=== PATIENT | female | born 1960 | race Caucasian/White ===

== ENCOUNTER 2023-04-03 05:50 | Inpatient (IN) | payer MEDICARE ==
[2023-04-03 06:33] LABS: #Basophils 0.1 10x3/uL (0.0-0.2); #Eosinphils 0.2 10x3/uL (0.0-0.5); #Monocytes 0.6 10x3/uL (0.0-1.1); #Neutrophils 4.5 10x3/uL (1.5-8.4); %Basophils 0.8 % (0.0-2.0); %Eosinophils 3.7 % (0.0-6.0); %Lymphocytes 11.5 % (18.0-47.0); %Monocytes 10.2 % (0.0-10.0); %Neutrophils 73.2 % (40.0-75.0); Hemoglobin 9.8 g/dL (12.0-15.5); Mean Corpuscular HGB CONC 32.9 g/dL (32.0-36.0); Mean Corpuscular Hemoglobin 31.9 pg (27.0-33.0); Mean Corpuscular Volume 97.1 fl (81.6-98.3); Mean Platelet Volume 8.6 fl (7.4-10.4); Platelet Count 130 10x3/uL (150-450); RBC Distribution Width 20.7 % (11.5-14.5); Red Blood Cell (RBC) Count 3.07 10x6/uL (3.90-5.03); White Blood Cell (WBC) Count 6.2 10x3/uL (3.5-10.5)
[2023-04-03 06:56] LABS: ALT (SGPT) 27 U/L (8-55); AST (SGOT) 41 U/L (5-34); Albumin 2.3 g/dL (3.4-4.8); Alkaline Phosphatase 121 U/L (40-110); Anion Gap 15 mmol/L (10-20); BUN (Urea Nitrogen) 10 mg/dL (9.8-20.1); Calc. Creatinine Clearance 0 mL/min (70-130); Calcium 8.7 mg/dL (7.8-10.44); Carbon Dioxide 26 mmol/L (23-31); Chloride 104 mmol/L (98-107); Estimated GFR 76; Globulin 2.9 g/dL (2.4-3.5); Glucose 107 mg/dL (80-115); Magnesium 1.9 mg/dL (1.6-2.6); Potassium 2.8 mmol/L (3.5-5.1); Protein, Total 5.2 g/dL (5.8-8.1); Sodium 142 mmol/L (136-145)
[2023-04-03 07:11] LABS: Bilirubin Neg (Negative); Blood, Urine Negative (Negative); Clarity Clear (Clear); Glucose, Urine (Dipstick) Normal (Negative); Ketone, Urine Negative (Negative); Leukocyte 25 (Negative); Nitrite Negative (Negative); Protein, Urine (Dipstick) 15 mg/dl (Neg-Trace); Urobilinogen Normal mg/dL (Less than 2)
[2023-04-03 07:24] LABS: Bacteria/HPF 2+ HPF (None Seen); CAUTI Indications for Culture Alt mental st,lethar; RBC/HPF None Seen HPF (0-3); Squamous Epithelial 0-3 HPF (0-3)
[2023-04-03 07:25] LABS: Urine Culture Reflex No No
[2023-04-03] MEDS ORDERED: Magnesium 2 GM/50 ML BAG (IN WATER) ONE (07:53)
[2023-04-03] MEDS ORDERED: Cefepime 2 GM VIAL ONE (07:53)
[2023-04-03] MEDS ORDERED: Potassium Chloride 20 MEQ/100 ML PREMIX BAG ONE (07:53)
[2023-04-03] MEDS ORDERED: Acetaminophen 325 MG TAB PO PRN (09:17)
[2023-04-03] MEDS ORDERED: Ondansetron PF 4 MG/2 ML Vial IVP PRN (09:17)
[2023-04-03] MEDS ORDERED: Calcium Carbonate 500 MG ChewTAB PO PRN (09:17)
[2023-04-03] MEDS ORDERED: Senokot S 8.6-50 MG TAB PO PRN (09:17)
[2023-04-03] MEDS ORDERED: Sodium Chloride 0.9% 1,000 ML IV SCH (09:30)
[2023-04-03] MEDS ORDERED: Vancomycin 1 GM VIAL ONE (10:31)
[2023-04-03 11:22] LABS: Lactic Acid 3.9 mmol/L (0.5-2.2)
[2023-04-03 15:18] VITALS: BMI 21.9
[2023-04-03] MEDS ORDERED: Sodium Chloride 0.9% 500 ML IV SCH (15:30)
[2023-04-03] MEDS: Sodium Chloride 0.9% 1,000 ML IV SCH (16:00)
[2023-04-03] MEDS: Albumin 25% 25 GM/100 ML BOT IVPB SCH (17:15)
[2023-04-03 18:04] LABS: Magnesium 2.4 mg/dL (1.6-2.6); Potassium 3.5 mmol/L (3.5-5.1)
[2023-04-03] MEDS ORDERED: Potassium Chloride 20 MEQ TAB PO SCH (18:30)
[2023-04-03 18:36] LABS: Lactic Acid 2.4 mmol/L (0.5-2.2)
[2023-04-03] MEDS ORDERED: Non-Formulary Medication 1 EACH (Apremilast [Otezla] 30 MG Tablet) PO SCH (21:00)
[2023-04-04] MEDS: Albumin 25% 25 GM/100 ML BOT IVPB SCH ×3 (00:30→12:45)
[2023-04-04 03:51] LABS: #Eosinphils 0.2 10x3/uL (0.0-0.5); #Monocytes 0.4 10x3/uL (0.0-1.1); #Neutrophils 2.7 10x3/uL (1.5-8.4); %Basophils 0.5 % (0.0-2.0); %Eosinophils 4.9 % (0.0-6.0); %Lymphocytes 13.8 % (18.0-47.0); %Monocytes 9.1 % (0.0-10.0); %Neutrophils 71.4 % (40.0-75.0); Mean Corpuscular HGB CONC 32.8 g/dL (32.0-36.0); Mean Corpuscular Volume 97.6 fl (81.6-98.3); Mean Platelet Volume 8.8 fl (7.4-10.4); Platelet Count 123 10x3/uL (150-450); RBC Distribution Width 20.1 % (11.5-14.5); White Blood Cell (WBC) Count 3.7 10x3/uL (3.5-10.5)
[2023-04-04 04:03] LABS: ALT (SGPT) 22 U/L (8-55); AST (SGOT) 28 U/L (5-34); Albumin 2.8 g/dL (3.4-4.8); Alkaline Phosphatase 100 U/L (40-110); Anion Gap 12 mmol/L (10-20); BUN (Urea Nitrogen) 11 mg/dL (9.8-20.1); Bilirubin, Total 2.2 mg/dL (0.2-1.2); Calc. Creatinine Clearance 67 mL/min (70-130); Calcium 9.1 mg/dL (7.8-10.44); Carbon Dioxide 27 mmol/L (23-31); Chloride 108 mmol/L (98-107); Estimated GFR 83; Globulin 2.2 g/dL (2.4-3.5); Glucose 73 mg/dL (80-115); Sodium 143 mmol/L (136-145)
[2023-04-04 04:37] LABS: Platelet Adequacy Comment Appears Decreased; RBC Morph Comment Within Normal Limits
[2023-04-04] MEDS: Sodium Chloride 0.9% 1,000 ML IV SCH (07:15)
[2023-04-04 08:27] LABS: Lactic Acid 1.2 mmol/L (0.5-2.2)
[2023-04-04] MEDS ORDERED: OCTREOTIDE ACETATE SQ SCH (09:00)
[2023-04-04] MEDS ORDERED: [UNRECOGNIZED DRUG - OTHER] SQ SCH (09:00)
[2023-04-04] MEDS: Potassium Chloride 20 MEQ TAB PO SCH (10:23)
[2023-04-04] MEDS: Clopidogrel Bisulfate 75 MG TAB PO SCH (10:23)
[2023-04-04] MEDS ORDERED: Vancomycin HCl 1 GM in Sodium Chloride 0.9% 250 ML 250 ML IVPB SCH (14:00)
[2023-04-04] MEDS: QUEtiapine 25 MG TAB PO SCH ×2 (14:47→15:23)
[2023-04-04] MEDS ORDERED: Iopamidol 370 76% 100 ML VIAL ONE (14:55)
[2023-04-04] MEDS ORDERED: diphenhydrAMINE 50 MG/ML VIAL IVP SCH (15:16)
[2023-04-04] MEDS ORDERED: OLANZapine 10 MG VIAL IM SCH (15:45)
[2023-04-04] MEDS ORDERED: cefTRIAXone\\ROCEPHIN 1 GM in Sodium Chloride 0.9% 100 ML IVPB SCH ×2 (17:00→20:00)
[2023-04-05] MEDS: Vancomycin HCl 750 MG in Sodium Chloride 0.9% 250 ML 250 ML IVPB SCH ×2 (02:38→14:41)
[2023-04-05] MEDS ORDERED: Furosemide 20 MG/2 ML VIAL SLOW IVP SCH ×2 (09:00→14:00)
[2023-04-05] MEDS: Clopidogrel Bisulfate 75 MG TAB PO SCH (11:00)
[2023-04-05] MEDS: Potassium Chloride 20 MEQ TAB PO SCH (11:00)
[2023-04-05] MEDS: Albumin 25% 25 GM/100 ML BOT IVPB SCH (11:10)
[2023-04-05 12:54] LABS: Vancomycin, Trough 13.9 ug/mL
[2023-04-05 14:25] LABS: #Eosinphils 0.2 10x3/uL (0.0-0.5); #Monocytes 0.5 10x3/uL (0.0-1.1); #Neutrophils 3.6 10x3/uL (1.5-8.4); %Basophils 0.4 % (0.0-2.0); %Eosinophils 3.6 % (0.0-6.0); %Lymphocytes 7.4 % (18.0-47.0); %Monocytes 11.4 % (0.0-10.0); %Neutrophils 76.8 % (40.0-75.0); Mean Corpuscular HGB CONC 31.1 g/dL (32.0-36.0); Mean Corpuscular Hemoglobin 31.9 pg (27.0-33.0); Mean Corpuscular Volume 102.4 fl (81.6-98.3); Platelet Count 95 10x3/uL (150-450); RBC Distribution Width 20.5 % (11.5-14.5); Red Blood Cell (RBC) Count 2.51 10x6/uL (3.90-5.03); White Blood Cell (WBC) Count 4.7 10x3/uL (3.5-10.5)
[2023-04-05 14:35] LABS: ALT (SGPT) 19 U/L (8-55); AST (SGOT) 26 U/L (5-34); Albumin 3.3 g/dL (3.4-4.8); Alkaline Phosphatase 85 U/L (40-110); Anion Gap 12 mmol/L (10-20); BUN (Urea Nitrogen) 9 mg/dL (9.8-20.1); Bilirubin, Total 2.2 mg/dL (0.2-1.2); Calc. Creatinine Clearance 65 mL/min (70-130); Calcium 9.7 mg/dL (7.8-10.44); Carbon Dioxide 24 mmol/L (23-31); Chloride 110 mmol/L (98-107); Estimated GFR 81; Globulin 2.1 g/dL (2.4-3.5); Glucose 90 mg/dL (80-115); Protein, Total 5.4 g/dL (5.8-8.1); Sodium 142 mmol/L (136-145)
[2023-04-05] MEDS ORDERED: Meropenem 1 GM in Sodium Chloride 0.9% 100 ML IVPB SCH ×2 (15:15→23:00)
[2023-04-05 16:51] LABS: Actual Bicarbonate (HCO3v) 25.5 mEq/L (22-28); Calcium, Ionized (venous) 1.26 mmol/L (1.16-1.32); Chloride (VBG) 108 mmol/L (98-106); Hematocrit-VBG 26 % (36.0-47.0); Hemoglobin (Hb) 8.7 g/dL (11.7-16.1); Potassium (VBG) 3.76 mmol/L (3.70-5.30); Puncture Site Other Site; RapidComm Collect By LAB; Sodium 139.6 mmol/L (133-146); pH (venous) 7.424 (7.32-7.43)
[2023-04-05] MEDS: Meropenem 1 GM in Sodium Chloride 0.9% 100 ML IVPB SCH (21:53)
[2023-04-06] MEDS: Vancomycin HCl 750 MG in Sodium Chloride 0.9% 250 ML 250 ML IVPB SCH ×2 (01:29→13:27)
[2023-04-06 05:17] LABS: #Eosinphils 0.3 10x3/uL (0.0-0.5); #Monocytes 0.6 10x3/uL (0.0-1.1); #Neutrophils 3.7 10x3/uL (1.5-8.4); %Basophils 0.6 % (0.0-2.0); %Eosinophils 4.9 % (0.0-6.0); %Lymphocytes 9.7 % (18.0-47.0); %Neutrophils 73.4 % (40.0-75.0); Hemoglobin 7.9 g/dL (12.0-15.5); Mean Corpuscular HGB CONC 31.5 g/dL (32.0-36.0); Mean Corpuscular Hemoglobin 31.3 pg (27.0-33.0); Mean Corpuscular Volume 99.6 fl (81.6-98.3); Mean Platelet Volume 9.6 fl (7.4-10.4); Platelet Count 99 10x3/uL (150-450); RBC Distribution Width 20.1 % (11.5-14.5); Red Blood Cell (RBC) Count 2.52 10x6/uL (3.90-5.03); White Blood Cell (WBC) Count 5.1 10x3/uL (3.5-10.5)
[2023-04-06 05:23] LABS: Phosphorus 2.5 mg/dL (2.3-4.7)
[2023-04-06 05:25] LABS: ALT (SGPT) 18 U/L (8-55); AST (SGOT) 22 U/L (5-34); Alkaline Phosphatase 82 U/L (40-110); Anion Gap 10 mmol/L (10-20); BUN (Urea Nitrogen) 8 mg/dL (9.8-20.1); Bilirubin, Total 2.7 mg/dL (0.2-1.2); Calc. Creatinine Clearance 72 mL/min (70-130); Calcium 9.4 mg/dL (7.8-10.44); Carbon Dioxide 25 mmol/L (23-31); Chloride 109 mmol/L (98-107); Estimated GFR 91; Glucose 79 mg/dL (80-115); Magnesium 1.8 mg/dL (1.6-2.6); Potassium 3.6 mmol/L (3.5-5.1); Sodium 140 mmol/L (136-145)
[2023-04-06] MEDS: Meropenem 1 GM in Sodium Chloride 0.9% 100 ML IVPB SCH ×3 (05:31→21:18)
[2023-04-06] MEDS: Furosemide 40 MG/4 ML VIAL SLOW IVP SCH (08:09)
[2023-04-06] MEDS: Clopidogrel Bisulfate 75 MG TAB PO SCH (08:10)
[2023-04-06] MEDS: Spironolactone 25 MG TAB PO SCH (08:10)
[2023-04-06] MEDS: Potassium Chloride 20 MEQ TAB PO SCH (08:10)
[2023-04-06] MEDS ORDERED: Electrolyte Replacement Protocol 1 EACH FS PRN (09:04)
[2023-04-06] MEDS ORDERED: Magnesium 2 GM/50 ML(in water) 2 GM in Premix Bag 1 BAG IVPB SCH (12:00)
[2023-04-06] MEDS: Albumin 25% 25 GM/100 ML BOT IVPB SCH (14:24)
[2023-04-07] MEDS: Vancomycin HCl 750 MG in Sodium Chloride 0.9% 250 ML 250 ML IVPB SCH (01:14)
[2023-04-07 04:00] LABS: #Eosinphils 0.4 10x3/uL (0.0-0.5); #Monocytes 0.7 10x3/uL (0.0-1.1); #Neutrophils 3.8 10x3/uL (1.5-8.4); %Basophils 0.5 % (0.0-2.0); %Eosinophils 6.3 % (0.0-6.0); %Lymphocytes 12.9 % (18.0-47.0); %Neutrophils 67.9 % (40.0-75.0); Hemoglobin 8.7 g/dL (12.0-15.5); Mean Corpuscular HGB CONC 32.5 g/dL (32.0-36.0); Mean Corpuscular Hemoglobin 32.2 pg (27.0-33.0); Mean Corpuscular Volume 99.3 fl (81.6-98.3); Mean Platelet Volume 9.7 fl (7.4-10.4); Platelet Count 120 10x3/uL (150-450); RBC Distribution Width 19.9 % (11.5-14.5); White Blood Cell (WBC) Count 5.3 10x3/uL (3.5-10.5)
[2023-04-07 04:10] LABS: ALT (SGPT) 17 U/L (8-55); AST (SGOT) 29 U/L (5-34); Albumin 2.8 g/dL (3.4-4.8); Alkaline Phosphatase 82 U/L (40-110); Anion Gap 9 mmol/L (10-20); BUN (Urea Nitrogen) 6 mg/dL (9.8-20.1); Bilirubin, Total 1.9 mg/dL (0.2-1.2); Calc. Creatinine Clearance 72 mL/min (70-130); Calcium 8.9 mg/dL (7.8-10.44); Carbon Dioxide 24 mmol/L (23-31); Chloride 110 mmol/L (98-107); Estimated GFR 91; Globulin 2.1 g/dL (2.4-3.5); Glucose 102 mg/dL (80-115); Magnesium 1.8 mg/dL (1.6-2.6); Potassium 3.4 mmol/L (3.5-5.1); Protein, Total 4.9 g/dL (5.8-8.1); Sodium 140 mmol/L (136-145)
[2023-04-07] MEDS: Meropenem 1 GM in Sodium Chloride 0.9% 100 ML IVPB SCH ×2 (05:37→13:20)
[2023-04-07] MEDS ORDERED: Potassium Chloride 20 MEQ TAB PO SCH (06:00)
[2023-04-07] MEDS ORDERED: Magnesium 2 GM/50 ML(in water) 2 GM in Premix Bag 1 BAG IVPB SCH (06:00)
[2023-04-07] MEDS: Furosemide 40 MG/4 ML VIAL SLOW IVP SCH (08:27)
[2023-04-07] MEDS: Spironolactone 25 MG TAB PO SCH (08:27)
[2023-04-07] MEDS: Clopidogrel Bisulfate 75 MG TAB PO SCH (08:27)
[2023-04-07] MEDS: Potassium Chloride 20 MEQ TAB PO SCH (08:29)
[2023-04-07 15:54] VITALS: BP 123/68; TEMP 99.2
== END 2023-04-07 15:57 | disposition home or self-care (01) | DRG 871 ==
LOC: CSHERS 05:50 → SUATTDRO 05:50 → CSHTELE 13:52 → CSHIMCU 04-05 18:02
PROVIDERS: ADMIT Internal Medicine; ATTEND Internal Medicine
PROC: 3E03329 Introduction of Other Anti-infective into Peripheral Vein, Percutaneous Approach (ICD-10-PCS; principal; 2023-04-03)
PROC: 30233J1 Transfusion of Nonautologous Serum Albumin into Peripheral Vein, Percutaneous Approach (ICD-10-PCS; 2023-04-05)
PROC: 5A09357 Assistance with Respiratory Ventilation, Less than 24 Consecutive Hours, Continuous Positive Airway Pressure (ICD-10-PCS; 2023-04-06)
DX: A41.9 Sepsis, unspecified organism (principal); G93.41 Metabolic encephalopathy; J18.9 Pneumonia, unspecified organism; I50.22 Chronic systolic (congestive) heart failure; K76.82 Hepatic encephalopathy; I25.10 Atherosclerotic heart disease of native coronary artery without angina pectoris; L40.9 Psoriasis, unspecified; I11.0 Hypertensive heart disease with heart failure; E78.00 Pure hypercholesterolemia, unspecified; E87.6 Hypokalemia; K74.69 Other cirrhosis of liver; E78.5 Hyperlipidemia, unspecified; D64.9 Anemia, unspecified; R41.0 Disorientation, unspecified; Z88.0 Allergy status to penicillin; Z88.5 Allergy status to narcotic agent; Z79.899 Other long term (current) drug therapy; Z85.3 Personal history of malignant neoplasm of breast; Z98.890 Other specified postprocedural states; Z87.891 Personal history of nicotine dependence; I25.2 Old myocardial infarction
CPT/HCPCS: 36415; 70450; 71045; 74177; 80053; 80202; 82140; 82533; 82565; 82805; 83605; 83735; 83880; 84100; 84145; 84484; 84520; 85025; 87040; 87077; 87086; 87186; 94760; 94762; 96374; 96375; J0692; J0696; J1200; J1940; J1956; J2185; J3370; J3475; J3480; J3490; J7030; J7050; P9047; Q9967

== ENCOUNTER 2023-05-15 15:22 | Observation (INO) | payer MEDICARE ==
[2023-05-15 16:13] LABS: #Eosinphils 0.3 10x3/uL (0.0-0.5); #Monocytes 0.6 10x3/uL (0.0-1.1); #Neutrophils 3.7 10x3/uL (1.5-8.4); %Basophils 0.6 % (0.0-2.0); %Eosinophils 5.1 % (0.0-6.0); %Lymphocytes 14.8 % (18.0-47.0); %Monocytes 10.7 % (0.0-10.0); %Neutrophils 68.4 % (40.0-75.0); Hemoglobin 10.9 g/dL (12.0-15.5); Mean Corpuscular HGB CONC 33.4 g/dL (32.0-36.0); Mean Corpuscular Hemoglobin 34.5 pg (27.0-33.0); Mean Corpuscular Volume 103.2 fl (81.6-98.3); Mean Platelet Volume 8.9 fl (7.4-10.4); Platelet Count 122 10x3/uL (150-450); RBC Distribution Width 18.6 % (11.5-14.5); Red Blood Cell (RBC) Count 3.16 10x6/uL (3.90-5.03); White Blood Cell (WBC) Count 5.3 10x3/uL (3.5-10.5)
[2023-05-15 16:27] LABS: ALT (SGPT) 34 U/L (8-55); AST (SGOT) 45 U/L (5-34); Albumin 3.1 g/dL (3.4-4.8); Alkaline Phosphatase 222 U/L (40-110); Anion Gap 15 mmol/L (10-20); BUN (Urea Nitrogen) 11 mg/dL (9.8-20.1); Bilirubin, Total 2.8 mg/dL (0.2-1.2); Calc. Creatinine Clearance 0 mL/min (70-130); Calcium 9.6 mg/dL (7.8-10.44); Carbon Dioxide 28 mmol/L (23-31); Chloride 100 mmol/L (98-107); Estimated GFR 58; Globulin 3.3 g/dL (2.4-3.5); Glucose 105 mg/dL (80-115); Potassium 3.6 mmol/L (3.5-5.1); Protein, Total 6.4 g/dL (5.8-8.1); Sodium 139 mmol/L (136-145)
[2023-05-15] MEDS ORDERED: Magnesium 2 GM/50 ML BAG (IN WATER) ONE (16:41)
[2023-05-15 18:28] LABS: Magnesium 2.1 mg/dL (1.6-2.6)
[2023-05-16 04:56] LABS: Anion Gap 13 mmol/L (10-20); BUN (Urea Nitrogen) 10 mg/dL (9.8-20.1); Calc. Creatinine Clearance 60 mL/min (70-130); Carbon Dioxide 27 mmol/L (23-31); Chloride 103 mmol/L (98-107); Potassium 3.1 mmol/L (3.5-5.1); Sodium 140 mmol/L (136-145)
[2023-05-16 04:57] LABS: Albumin 2.3 g/dL (3.4-4.8); Bilirubin, Total 2.2 mg/dL (0.2-1.2); Calcium 8.5 mg/dL (7.8-10.44); Estimated GFR 76; Globulin 2.6 g/dL (2.4-3.5); Glucose 101 mg/dL (80-115); Protein, Total 4.9 g/dL (5.8-8.1)
[2023-05-16 04:58] LABS: ALT (SGPT) 27 U/L (8-55); AST (SGOT) 32 U/L (5-34); Alkaline Phosphatase 166 U/L (40-110); Magnesium 2.2 mg/dL (1.6-2.6)
[2023-05-16 05:00] LABS: #Eosinphils 0.3 10x3/uL (0.0-0.5); #Monocytes 0.4 10x3/uL (0.0-1.1); #Neutrophils 1.9 10x3/uL (1.5-8.4); %Basophils 0.9 % (0.0-2.0); %Eosinophils 8.1 % (0.0-6.0); %Lymphocytes 21.3 % (18.0-47.0); %Monocytes 12.6 % (0.0-10.0); %Neutrophils 56.5 % (40.0-75.0)
[2023-05-16 05:07] LABS: Hemoglobin 8.6 g/dL (12.0-15.5); Mean Corpuscular HGB CONC 32.7 g/dL (32.0-36.0); Mean Corpuscular Hemoglobin 33.7 pg (27.0-33.0); Mean Corpuscular Volume 103.1 fl (81.6-98.3); Mean Platelet Volume 8.9 fl (7.4-10.4); Platelet Count 114 10x3/uL (150-450); RBC Distribution Width 18.5 % (11.5-14.5); Red Blood Cell (RBC) Count 2.55 10x6/uL (3.90-5.03); White Blood Cell (WBC) Count 3.4 10x3/uL (3.5-10.5)
[2023-05-16 05:19] LABS: Anisocytosis SLIGHT = 6-15 cells (100X) (0-5/hpf); Microcytosis SLIGHT = 6-15 cells (100X) (0-5/hpf); Ovalocytes SLIGHT = 2-5 cells (100X) (0-1/hpf)
[2023-05-16 05:20] LABS: Platelet Adequacy Comment Appears Decreased
[2023-05-16] MEDS ORDERED: Electrolyte Replacement Protocol FS PRN (06:45)
[2023-05-16] MEDS ORDERED: Potassium Chloride 20 MEQ TAB PO SCH (07:00)
[2023-05-16 07:14] VITALS: BP 104/53; TEMP 99.2
[2023-05-16] MEDS ORDERED: Ondansetron ODT 4 MG TAB PO PRN (08:26)
[2023-05-16] MEDS ORDERED: Spironolactone 25 MG TAB PO SCH (09:00)
[2023-05-16] MEDS ORDERED: Rifaximin 200 MG TAB PO SCH (09:00)
[2023-05-16] MEDS ORDERED: Cholecalciferol 1,000 UNITS (25 MCG) TAB PO SCH (09:00)
[2023-05-16] MEDS ORDERED: Furosemide 40 MG TAB PO SCH (09:00)
[2023-05-16] MEDS ORDERED: Clopidogrel Bisulfate 75 MG TAB PO SCH (09:00)
[2023-05-17] MEDS ORDERED: Potassium Chloride 20 MEQ TAB PO SCH (09:00)
== END 2023-05-16 11:39 | disposition home or self-care (01) ==
LOC: CSHERS 15:22 → INTOOBSV 21:35 → CSHTELE 21:35
PROVIDERS: ADMIT Student in an Organized Health Care Education/Training Program; ATTEND Family Medicine
DX: R41.82 Altered mental status, unspecified (principal); E78.5 Hyperlipidemia, unspecified; I25.10 Atherosclerotic heart disease of native coronary artery without angina pectoris; K74.60 Unspecified cirrhosis of liver; I50.22 Chronic systolic (congestive) heart failure; I11.0 Hypertensive heart disease with heart failure; D64.9 Anemia, unspecified; I25.2 Old myocardial infarction; C50.911 Malignant neoplasm of unspecified site of right female breast; K76.82 Hepatic encephalopathy; Z88.5 Allergy status to narcotic agent; Z88.0 Allergy status to penicillin; Z79.899 Other long term (current) drug therapy
CPT/HCPCS: 70450; 80053 ×2; 82140; 83735 ×2; 84484; 85025 ×2; 87040; 93005; 94760 ×2; G0378 ×3; 36415; J3475

== ENCOUNTER 2023-05-19 14:57 | Inpatient (IN) | payer MEDICARE ==
[2023-05-19 16:20] LABS: Hemoglobin 11.1 g/dL (12.0-15.5); Mean Corpuscular HGB CONC 33.5 g/dL (32.0-36.0); Mean Corpuscular Hemoglobin 33.7 pg (27.0-33.0); Mean Corpuscular Volume 100.6 fl (81.6-98.3); RBC Distribution Width 17.8 % (11.5-14.5); Red Blood Cell (RBC) Count 3.29 10x6/uL (3.90-5.03)
[2023-05-19 16:21] LABS: ALT (SGPT) 32 U/L (8-55); AST (SGOT) 37 U/L (5-34); Albumin 2.9 g/dL (3.4-4.8); Alkaline Phosphatase 219 U/L (40-110); Anion Gap 16 mmol/L (10-20); BUN (Urea Nitrogen) 14 mg/dL (9.8-20.1); Bilirubin, Total 2.5 mg/dL (0.2-1.2); Calc. Creatinine Clearance 0 mL/min (70-130); Calcium 9.8 mg/dL (7.8-10.44); Carbon Dioxide 22 mmol/L (23-31); Chloride 98 mmol/L (98-107); Estimated GFR 55; Globulin 3.5 g/dL (2.4-3.5); Glucose 128 mg/dL (80-115); Mean Platelet Volume 8.7 fl (7.4-10.4); Platelet Count 153 10x3/uL (150-450); Potassium 4.8 mmol/L (3.5-5.1); Protein, Total 6.4 g/dL (5.8-8.1); Sodium 131 mmol/L (136-145)
[2023-05-19 16:22] LABS: #Basophils 0.1 10x3/uL (0.0-0.2); #Eosinphils 0.2 10x3/uL (0.0-0.5); #Monocytes 0.6 10x3/uL (0.0-1.1); #Neutrophils 4.6 10x3/uL (1.5-8.4); %Basophils 0.8 % (0.0-2.0); %Lymphocytes 10.2 % (18.0-47.0); %Monocytes 9.2 % (0.0-10.0); %Neutrophils 76.5 % (40.0-75.0)
[2023-05-19] MEDS ORDERED: Ondansetron PF 4 MG/2 ML Vial ONE (17:46)
[2023-05-19] MEDS ORDERED: Acetaminophen 325 MG TAB PO PRN (20:42)
[2023-05-19] MEDS ORDERED: Ondansetron PF 4 MG/2 ML Vial IVP PRN (20:42)
[2023-05-19] MEDS ORDERED: Senokot S 8.6-50 MG TAB PO PRN (20:42)
[2023-05-19] MEDS ORDERED: Guaifenesin DM 100-10/5 ML UDCUP PO PRN (20:42)
[2023-05-19] MEDS ORDERED: Calcium Carbonate 500 MG ChewTAB PO PRN (20:42)
[2023-05-19 22:17] VITALS: BMI 20.7
[2023-05-19] MEDS ORDERED: Rifaximin 200 MG TAB PO SCH (22:30)
[2023-05-19] MEDS: Albumin 25% 25 GM/100 ML BOT IVPB SCH (23:51)
[2023-05-20 05:12] LABS: #Eosinphils 0.3 10x3/uL (0.0-0.5); #Monocytes 0.5 10x3/uL (0.0-1.1); #Neutrophils 2.2 10x3/uL (1.5-8.4); %Eosinophils 7.3 % (0.0-6.0); %Monocytes 12.4 % (0.0-10.0); %Neutrophils 56.8 % (40.0-75.0); Hemoglobin 8.6 g/dL (12.0-15.5); Mean Corpuscular HGB CONC 32.7 g/dL (32.0-36.0); Mean Corpuscular Hemoglobin 33.6 pg (27.0-33.0); Mean Corpuscular Volume 102.7 fl (81.6-98.3); Mean Platelet Volume 8.8 fl (7.4-10.4); Platelet Count 90 10x3/uL (150-450); Red Blood Cell (RBC) Count 2.56 10x6/uL (3.90-5.03); White Blood Cell (WBC) Count 3.9 10x3/uL (3.5-10.5)
[2023-05-20 05:23] LABS: ALT (SGPT) 21 U/L (8-55); AST (SGOT) 27 U/L (5-34); Albumin 2.9 g/dL (3.4-4.8); Alkaline Phosphatase 161 U/L (40-110); Anion Gap 10 mmol/L (10-20); BUN (Urea Nitrogen) 13 mg/dL (9.8-20.1); Bilirubin, Total 2.7 mg/dL (0.2-1.2); Calc. Creatinine Clearance 53 mL/min (70-130); Calcium 9.3 mg/dL (7.8-10.44); Carbon Dioxide 24 mmol/L (23-31); Chloride 103 mmol/L (98-107); Estimated GFR 69; Globulin 2.4 g/dL (2.4-3.5); Glucose 77 mg/dL (80-115); Potassium 4.2 mmol/L (3.5-5.1); Protein, Total 5.3 g/dL (5.8-8.1); Sodium 133 mmol/L (136-145)
[2023-05-20] MEDS: Albumin 25% 25 GM/100 ML BOT IVPB SCH (06:56)
[2023-05-20 07:40] LABS: Bilirubin Neg (Negative); Blood, Urine 25 (Negative); Clarity Clear (Clear); Glucose, Urine (Dipstick) Normal (Negative); Ketone, Urine Negative (Negative); Leukocyte 25 (Negative); Nitrite Negative (Negative); Protein, Urine (Dipstick) Negative (Neg-Trace); Specific Gravity, Urine 1.005 (1.005-1.030); Urobilinogen Normal mg/dL (Less than 2)
[2023-05-20 07:55] LABS: RBC/HPF 0-3 HPF (0-3); Squamous Epithelial 0-3 HPF (0-3)
[2023-05-20 07:56] LABS: Bacteria/HPF 3+ HPF (None Seen); Transitional Epithelial 0-3 HPF (None Seen)
[2023-05-20] MEDS ORDERED: Furosemide 20 MG TAB PO SCH (09:00)
[2023-05-20] MEDS: Multivitamin W/ Minerals 1 TAB PO SCH (10:07)
[2023-05-20] MEDS: Cholecalciferol 1,000 UNITS (25 MCG) TAB PO SCH (10:07)
[2023-05-20] MEDS: Clopidogrel Bisulfate 75 MG TAB PO SCH (10:07)
[2023-05-20] MEDS: Zinc Sulfate 220 MG CAP PO SCH (10:08)
[2023-05-20] MEDS: Multivitamin w/Zinc Stress 1 TAB PO SCH (10:09)
[2023-05-20] MEDS: Rifaximin 200 MG TAB PO SCH ×2 (10:09→21:11)
[2023-05-20] MEDS ORDERED: Lactated Ringer's 500 ML IV SCH (12:00)
[2023-05-20] MEDS: cefTRIAXone\\ROCEPHIN 2 GM in Sodium Chloride 0.9% 100 ML IVPB SCH (13:09)
[2023-05-21 05:36] LABS: #Eosinphils 0.2 10x3/uL (0.0-0.5); #Monocytes 0.5 10x3/uL (0.0-1.1); #Neutrophils 2.4 10x3/uL (1.5-8.4); %Basophils 0.5 % (0.0-2.0); %Eosinophils 5.9 % (0.0-6.0); %Lymphocytes 15.1 % (18.0-47.0); %Monocytes 12.1 % (0.0-10.0); %Neutrophils 65.9 % (40.0-75.0); Hemoglobin 8.3 g/dL (12.0-15.5); Mean Corpuscular HGB CONC 32.4 g/dL (32.0-36.0); Mean Corpuscular Hemoglobin 33.7 pg (27.0-33.0); Mean Corpuscular Volume 104.1 fl (81.6-98.3); Platelet Count 104 10x3/uL (150-450); RBC Distribution Width 18.1 % (11.5-14.5); Red Blood Cell (RBC) Count 2.46 10x6/uL (3.90-5.03); White Blood Cell (WBC) Count 3.7 10x3/uL (3.5-10.5)
[2023-05-21 05:44] LABS: Anion Gap 12 mmol/L (10-20); BUN (Urea Nitrogen) 14 mg/dL (9.8-20.1); Calc. Creatinine Clearance 42 mL/min (70-130); Calcium 9.1 mg/dL (7.8-10.44); Carbon Dioxide 23 mmol/L (23-31); Chloride 107 mmol/L (98-107); Estimated GFR 53; Glucose 112 mg/dL (80-115); Potassium 3.9 mmol/L (3.5-5.1); Sodium 138 mmol/L (136-145)
[2023-05-21] MEDS: Clopidogrel Bisulfate 75 MG TAB PO SCH (08:40)
[2023-05-21] MEDS: Rifaximin 200 MG TAB PO SCH ×2 (08:40→21:06)
[2023-05-21] MEDS: Folic Acid 1 MG TAB PO SCH (08:40)
[2023-05-21] MEDS: Multivitamin w/Zinc Stress 1 TAB PO SCH (08:40)
[2023-05-21] MEDS: Cholecalciferol 1,000 UNITS (25 MCG) TAB PO SCH (08:40)
[2023-05-21] MEDS: Thiamine 100 MG TAB PO SCH (08:40)
[2023-05-21] MEDS: Zinc Sulfate 220 MG CAP PO SCH (08:40)
[2023-05-21] MEDS: Multivitamin W/ Minerals 1 TAB PO SCH (08:40)
[2023-05-21] MEDS: cefTRIAXone\\ROCEPHIN 2 GM in Sodium Chloride 0.9% 100 ML IVPB SCH (11:22)
[2023-05-21] MEDS ORDERED: Albumin 25% 25 GM/100 ML BOT IVPB SCH (12:00)
[2023-05-21] MEDS ORDERED: Furosemide 40 MG/4 ML VIAL SLOW IVP SCH (12:15)
[2023-05-22] MEDS ORDERED: diphenhydrAMINE 25 MG CAP PO SCH (01:15)
[2023-05-22] MEDS ORDERED: traMADol HCl 50 MG TAB PO SCH (03:45)
[2023-05-22 05:13] LABS: #Eosinphils 0.3 10x3/uL (0.0-0.5); #Monocytes 0.5 10x3/uL (0.0-1.1); #Neutrophils 2.8 10x3/uL (1.5-8.4); %Basophils 0.5 % (0.0-2.0); %Eosinophils 6.6 % (0.0-6.0); %Lymphocytes 15.4 % (18.0-47.0); %Monocytes 11.4 % (0.0-10.0); %Neutrophils 65.6 % (40.0-75.0); Hemoglobin 8.4 g/dL (12.0-15.5); Mean Corpuscular HGB CONC 32.7 g/dL (32.0-36.0); Mean Corpuscular Hemoglobin 33.7 pg (27.0-33.0); Mean Corpuscular Volume 103.2 fl (81.6-98.3); Mean Platelet Volume 8.5 fl (7.4-10.4); Platelet Count 84 10x3/uL (150-450); RBC Distribution Width 18.3 % (11.5-14.5); Red Blood Cell (RBC) Count 2.49 10x6/uL (3.90-5.03); White Blood Cell (WBC) Count 4.2 10x3/uL (3.5-10.5)
[2023-05-22 05:22] LABS: Anion Gap 12 mmol/L (10-20); BUN (Urea Nitrogen) 14 mg/dL (9.8-20.1); Calc. Creatinine Clearance 56 mL/min (70-130); Calcium 8.2 mg/dL (7.8-10.44); Carbon Dioxide 19 mmol/L (23-31); Chloride 107 mmol/L (98-107); Estimated GFR 74; Glucose 92 mg/dL (80-115); Potassium 3.5 mmol/L (3.5-5.1); Sodium 134 mmol/L (136-145)
[2023-05-22] MEDS ORDERED: Furosemide 40 MG/4 ML VIAL SLOW IVP SCH ×2 (06:00→18:00)
[2023-05-22 08:04] VITALS: TEMP 98.6
[2023-05-22] MEDS: Zinc Sulfate 220 MG CAP PO SCH (08:48)
[2023-05-22] MEDS: Thiamine 100 MG TAB PO SCH (08:48)
[2023-05-22] MEDS: Multivitamin W/ Minerals 1 TAB PO SCH (08:48)
[2023-05-22] MEDS: Multivitamin w/Zinc Stress 1 TAB PO SCH (08:48)
[2023-05-22] MEDS: Cholecalciferol 1,000 UNITS (25 MCG) TAB PO SCH (08:49)
[2023-05-22] MEDS: Clopidogrel Bisulfate 75 MG TAB PO SCH (08:49)
[2023-05-22] MEDS: Rifaximin 200 MG TAB PO SCH (08:49)
[2023-05-22] MEDS: Folic Acid 1 MG TAB PO SCH (08:49)
[2023-05-22 09:29] VITALS: BP 125/58
[2023-05-22] MEDS ORDERED: Metoprolol Tartrate 25 MG TAB PO SCH (10:00)
== END 2023-05-22 13:30 | disposition home or self-care (01) | DRG 441 ==
LOC: CSHERS 14:57 → CSHTELE 20:42 → OBSVTOIN 05-20 18:02
PROVIDERS: ADMIT Student in an Organized Health Care Education/Training Program; ATTEND Family Medicine
PROC: 30233J1 Transfusion of Nonautologous Serum Albumin into Peripheral Vein, Percutaneous Approach (ICD-10-PCS; principal; 2023-05-20)
DX: K76.82 Hepatic encephalopathy (principal); G93.41 Metabolic encephalopathy; I50.31 Acute diastolic (congestive) heart failure; N17.9 Acute kidney failure, unspecified; N39.0 Urinary tract infection, site not specified; E87.1 Hypo-osmolality and hyponatremia; K74.60 Unspecified cirrhosis of liver; I10 Essential (primary) hypertension; E78.5 Hyperlipidemia, unspecified; I25.10 Atherosclerotic heart disease of native coronary artery without angina pectoris; E86.0 Dehydration; I07.1 Rheumatic tricuspid insufficiency; D64.9 Anemia, unspecified; E78.00 Pure hypercholesterolemia, unspecified; R00.0 Tachycardia, unspecified; Z88.5 Allergy status to narcotic agent; Z88.0 Allergy status to penicillin; Z79.899 Other long term (current) drug therapy; Z98.890 Other specified postprocedural states; Z85.3 Personal history of malignant neoplasm of breast; Z90.49 Acquired absence of other specified parts of digestive tract; Z87.891 Personal history of nicotine dependence
CPT/HCPCS: 36415; 71045; 80048; 80053; 81001; 82140; 83605; 84484; 85025; 87077; 87086; 87186; 93005; 93010; 96361; 96374; 96375; 96376; G0378; J0696; J1940; J2405; J3490; J7120; P9047

== ENCOUNTER 2023-06-17 15:54 | Inpatient (IN) | payer MEDICARE ==
[2023-06-17 17:56] LABS: #Eosinphils 0.3 10x3/uL (0.0-0.5); #Monocytes 0.8 10x3/uL (0.0-1.1); %Basophils 0.5 % (0.0-2.0); %Eosinophils 4.8 % (0.0-6.0); %Lymphocytes 18.6 % (18.0-47.0); %Monocytes 12.4 % (0.0-10.0); %Neutrophils 63.2 % (40.0-75.0); Hematocrit 24.3 % (34.9-44.5); Hemoglobin 8.1 g/dL (12.0-15.5); Mean Corpuscular HGB CONC 33.3 g/dL (32.0-36.0); Mean Corpuscular Hemoglobin 34.3 pg (27.0-33.0); Mean Platelet Volume 9.1 fl (7.4-10.4); Platelet Count 120 10x3/uL (150-450); RBC Distribution Width 15.2 % (11.5-14.5); Red Blood Cell (RBC) Count 2.36 10x6/uL (3.90-5.03); White Blood Cell (WBC) Count 6.3 10x3/uL (3.5-10.5)
[2023-06-17 18:15] LABS: ALT (SGPT) 16 U/L (8-55); AST (SGOT) 25 U/L (5-34); Albumin 2.6 g/dL (3.4-4.8); Alkaline Phosphatase 104 U/L (40-110); Anion Gap 11 mmol/L (10-20); BUN (Urea Nitrogen) 46 mg/dL (9.8-20.1); Bilirubin, Total 1.7 mg/dL (0.2-1.2); Calc. Creatinine Clearance 0 mL/min (70-130); Carbon Dioxide 23 mmol/L (23-31); Chloride 105 mmol/L (98-107); Estimated GFR 50; Globulin 2.5 g/dL (2.4-3.5); Glucose 85 mg/dL (80-115); Lipase 50 U/L (8-78); Magnesium 2.1 mg/dL (1.6-2.6); Potassium 5.7 mmol/L (3.5-5.1); Protein, Total 5.1 g/dL (5.8-8.1); Sodium 133 mmol/L (136-145); Troponin I Less than 0.010 ng/mL (< 0.028)
[2023-06-17 21:33] LABS: Hematocrit 25.2 % (34.9-44.5); Hemoglobin 8.1 g/dL (12.0-15.5)
[2023-06-17 21:57] LABS: INR-International Normal Ratio 1.3; PTT 35.4 sec (22.0-33.0); Prothrombin Time 14.4 sec (9.5-12.1)
[2023-06-17] MEDS ORDERED: Pantoprazole 40 MG VIAL IVP SCH (23:00)
[2023-06-17] MEDS ORDERED: Rifaximin 550 MG TAB PO SCH (23:00)
[2023-06-17] MEDS ORDERED: cefTRIAXone\\ROCEPHIN 1 GM in Sodium Chloride 0.9% 100 ML IVPB SCH (23:00)
[2023-06-17] MEDS ORDERED: Rifaximin 200 MG TAB PO SCH (23:15)
[2023-06-17 23:35] VITALS: BMI 23.5
[2023-06-17] MEDS: Sodium Chloride 0.9% 1,000 ML IV SCH (23:59)
[2023-06-18 00:58] LABS: Hematocrit 22.8 % (34.9-44.5); Hemoglobin 7.5 g/dL (12.0-15.5)
[2023-06-18] MEDS ORDERED: Pantoprazole 80 MG, Admixture Fee 1 EACH in Sodium Chloride 0.9% 100 ML IVP SCH (01:00)
[2023-06-18 01:11] LABS: Anion Gap 13 mmol/L (10-20); BUN (Urea Nitrogen) 43 mg/dL (9.8-20.1); Calc. Creatinine Clearance 49 mL/min (70-130); Calcium 8.4 mg/dL (7.8-10.44); Carbon Dioxide 20 mmol/L (23-31); Chloride 108 mmol/L (98-107); Estimated GFR 55; Glucose 97 mg/dL (80-115); Potassium 4.2 mmol/L (3.5-5.1); Sodium 137 mmol/L (136-145)
[2023-06-18 04:48] LABS: #Eosinphils 0.6 10x3/uL (0.0-0.5); #Monocytes 0.5 10x3/uL (0.0-1.1); #Neutrophils 3.1 10x3/uL (1.5-8.4); %Basophils 0.6 % (0.0-2.0); %Eosinophils 10.8 % (0.0-6.0); %Lymphocytes 18.9 % (18.0-47.0); %Monocytes 9.8 % (0.0-10.0); %Neutrophils 59.7 % (40.0-75.0); Hemoglobin 6.9 g/dL (12.0-15.5); Mean Corpuscular HGB CONC 32.9 g/dL (32.0-36.0); Mean Corpuscular Hemoglobin 34.3 pg (27.0-33.0); Mean Corpuscular Volume 104.5 fl (81.6-98.3); Mean Platelet Volume 9.2 fl (7.4-10.4); Platelet Count 101 10x3/uL (150-450); RBC Distribution Width 15.4 % (11.5-14.5); Red Blood Cell (RBC) Count 2.01 10x6/uL (3.90-5.03); White Blood Cell (WBC) Count 5.2 10x3/uL (3.5-10.5)
[2023-06-18 05:29] LABS: Macrocytosis MODERATE=16-30 cells (100X) (0-5/hpf); Platelet Adequacy Comment PLT clumps seen-LOW
[2023-06-18] MEDS ORDERED: Pantoprazole 80 MG, Admixture Fee 1 EACH in Sodium Chloride 0.9% 100 ML IVPB SCH (06:00)
[2023-06-18] MEDS ORDERED: Pantoprazole 40 MG VIAL IVP SCH (09:00)
[2023-06-18] MEDS: Sodium Chloride 0.9% 1,000 ML IV SCH ×2 (09:42→16:08)
[2023-06-18] MEDS: Rifaximin 200 MG TAB PO SCH ×2 (09:42→22:00)
[2023-06-18] MEDS: Linezolid 600 MG in Premix Bag 1 BAG IVPB SCH (13:29)
[2023-06-18] MEDS ORDERED: EPINEPHrine 1 MG/ML AMP ONE (15:23)
[2023-06-18] MEDS ORDERED: Bupivacaine PF 0.5% 30 ML VIAL ONE (15:24)
[2023-06-18] MEDS: Ondansetron PF 4 MG/2 ML Vial IVP PRN (20:13)
[2023-06-18] MEDS ORDERED: Promethazine HCl 25 MG, Admixture Fee 1 EACH in Sodium Chloride 0.9% 50 ML IVPB SCH (23:15)
[2023-06-19] MEDS: Linezolid 600 MG in Premix Bag 1 BAG IVPB SCH (01:41)
[2023-06-19] MEDS: Ondansetron PF 4 MG/2 ML Vial IVP PRN ×2 (01:42→09:12)
[2023-06-19] MEDS: Sodium Chloride 0.9% 1,000 ML IV SCH (04:30)
[2023-06-19] MEDS ORDERED: Morphine 2 MG/ML VIAL SLOW IVP SCH (04:45)
[2023-06-19 05:27] LABS: #Eosinphils 0.1 10x3/uL (0.0-0.5); #Monocytes 0.2 10x3/uL (0.0-1.1); #Neutrophils 2.7 10x3/uL (1.5-8.4); %Basophils 0.6 % (0.0-2.0); %Lymphocytes 12.6 % (18.0-47.0); %Monocytes 5.2 % (0.0-10.0); Hematocrit 23.5 % (34.9-44.5); Hemoglobin 7.7 g/dL (12.0-15.5); Mean Corpuscular HGB CONC 32.8 g/dL (32.0-36.0); Mean Corpuscular Hemoglobin 33.5 pg (27.0-33.0); Mean Corpuscular Volume 102.2 fl (81.6-98.3); Mean Platelet Volume 9.4 fl (7.4-10.4); Platelet Count 102 10x3/uL (150-450); RBC Distribution Width 17.1 % (11.5-14.5); White Blood Cell (WBC) Count 3.5 10x3/uL (3.5-10.5)
[2023-06-19 05:30] LABS: Anion Gap 11 mmol/L (10-20); BUN (Urea Nitrogen) 21 mg/dL (9.8-20.1); Calc. Creatinine Clearance 68 mL/min (70-130); Calcium 8.4 mg/dL (7.8-10.44); Carbon Dioxide 18 mmol/L (23-31); Chloride 111 mmol/L (98-107); Estimated GFR 81; Glucose 115 mg/dL (80-115); Potassium 3.7 mmol/L (3.5-5.1); Sodium 136 mmol/L (136-145)
[2023-06-19 07:39] LABS: Bilirubin Neg (Negative); Blood, Urine 10 (Negative); Clarity Clear (Clear); Glucose, Urine (Dipstick) Normal (Negative); Ketone, Urine Negative (Negative); Leukocyte 25 (Negative); Nitrite Negative (Negative); Protein, Urine (Dipstick) 15 mg/dl (Neg-Trace); Specific Gravity, Urine 1.015 (1.005-1.030); Urobilinogen Normal mg/dL (Less than 2)
[2023-06-19 07:54] LABS: RBC/HPF 0-3 HPF (0-3); Squamous Epithelial 0-3 HPF (0-3); WBC/HPF 0-3 HPF (0-3)
[2023-06-19 07:55] LABS: Bacteria/HPF Rare-Few HPF (None Seen)
[2023-06-19] MEDS: Rifaximin 200 MG TAB PO SCH ×2 (09:13→21:49)
[2023-06-19] MEDS ORDERED: Morphine 2 MG/ML VIAL SLOW IVP PRN (12:03)
[2023-06-19] MEDS: Diclofenac 1% 100 GM Topical GEL TP SCH ×2 (16:58→21:46)
[2023-06-19] MEDS: Metoprolol Tartrate 25 MG TAB PO SCH (21:47)
[2023-06-19] MEDS: Linezolid 600 MG TAB PO SCH (21:48)
[2023-06-20 05:25] LABS: #Eosinphils 0.5 10x3/uL (0.0-0.5); #Monocytes 0.4 10x3/uL (0.0-1.1); #Neutrophils 1.9 10x3/uL (1.5-8.4); %Basophils 0.8 % (0.0-2.0); %Eosinophils 13.1 % (0.0-6.0); %Lymphocytes 22.8 % (18.0-47.0); %Neutrophils 51.8 % (40.0-75.0); Anion Gap 7 mmol/L (10-20); BUN (Urea Nitrogen) 9 mg/dL (9.8-20.1); Calc. Creatinine Clearance 72 mL/min (70-130); Calcium 7.9 mg/dL (7.8-10.44); Carbon Dioxide 20 mmol/L (23-31); Chloride 114 mmol/L (98-107); Estimated GFR 87; Glucose 78 mg/dL (80-115); Hematocrit 20.8 % (34.9-44.5); Hemoglobin 6.7 g/dL (12.0-15.5); Mean Corpuscular HGB CONC 32.2 g/dL (32.0-36.0); Mean Corpuscular Hemoglobin 33.3 pg (27.0-33.0); Mean Corpuscular Volume 103.5 fl (81.6-98.3); Platelet Count 83 10x3/uL (150-450); Potassium 3.7 mmol/L (3.5-5.1); RBC Distribution Width 16.6 % (11.5-14.5); Red Blood Cell (RBC) Count 2.01 10x6/uL (3.90-5.03); Sodium 137 mmol/L (136-145); White Blood Cell (WBC) Count 3.7 10x3/uL (3.5-10.5)
[2023-06-20 06:32] LABS: Band 1 % (5-11); Eosinophils 12 % (0-10); Lymphocytes 21 % (21-51); Monocytes 15 % (0-10)
[2023-06-20 06:40] LABS: Anisocytosis SLIGHT = 6-15 cells (100X) (0-5/hpf)
[2023-06-20 06:41] LABS: Hypochromia SLIGHT = 6-15 cells (100X) (0-5/hpf); Macrocytosis SLIGHT = 6-15 cells (100X) (0-5/hpf); Microcytosis SLIGHT = 6-15 cells (100X) (0-5/hpf); Schistocytes SLIGHT = 2-5 cells (100X) (0-1/hpf)
[2023-06-20 06:43] LABS: Platelet Adequacy Comment Appears Decreased
[2023-06-20] MEDS: Metoprolol Tartrate 25 MG TAB PO SCH ×2 (09:59→23:25)
[2023-06-20] MEDS: Linezolid 600 MG TAB PO SCH ×2 (09:59→21:04)
[2023-06-20] MEDS: Rifaximin 200 MG TAB PO SCH ×2 (09:59→21:08)
[2023-06-20] MEDS: Diclofenac 1% 100 GM Topical GEL TP SCH ×4 (10:00→21:01)
[2023-06-20 10:57] LABS: MDiff Complete? YES; Neutrophil 51 % (42-75)
[2023-06-21 04:20] LABS: #Eosinphils 0.5 10x3/uL (0.0-0.5); #Monocytes 0.4 10x3/uL (0.0-1.1); #Neutrophils 2.4 10x3/uL (1.5-8.4); %Basophils 0.5 % (0.0-2.0); %Eosinophils 11.8 % (0.0-6.0); %Lymphocytes 21.3 % (18.0-47.0); %Monocytes 9.4 % (0.0-10.0); %Neutrophils 56.8 % (40.0-75.0); Hematocrit 24.7 % (34.9-44.5); Hemoglobin 8.3 g/dL (12.0-15.5); Mean Corpuscular HGB CONC 33.6 g/dL (32.0-36.0); Mean Corpuscular Hemoglobin 33.7 pg (27.0-33.0); Mean Corpuscular Volume 100.4 fl (81.6-98.3); Mean Platelet Volume 10.1 fl (7.4-10.4); Platelet Count 79 10x3/uL (150-450); RBC Distribution Width 19.5 % (11.5-14.5); Red Blood Cell (RBC) Count 2.46 10x6/uL (3.90-5.03); White Blood Cell (WBC) Count 4.2 10x3/uL (3.5-10.5)
[2023-06-21] MEDS: Diclofenac 1% 100 GM Topical GEL TP SCH (09:04)
[2023-06-21] MEDS: Rifaximin 200 MG TAB PO SCH (09:04)
[2023-06-21] MEDS: Linezolid 600 MG TAB PO SCH ×2 (09:05→10:04)
[2023-06-21] MEDS: Metoprolol Tartrate 25 MG TAB PO SCH (10:27)
[2023-06-21 12:24] VITALS: BP 115/55; TEMP 98.3
== END 2023-06-21 13:06 | disposition home or self-care (01) | DRG 378 ==
LOC: CSHERS 15:54 → CSHTELE 22:41
PROVIDERS: ADMIT Family Medicine; ATTEND Internal Medicine
PROC: 30233N1 Transfusion of Nonautologous Red Blood Cells into Peripheral Vein, Percutaneous Approach (ICD-10-PCS; principal; 2023-06-18)
DX: K92.2 Gastrointestinal hemorrhage, unspecified (principal); D62 Acute posthemorrhagic anemia; N39.0 Urinary tract infection, site not specified; I50.22 Chronic systolic (congestive) heart failure; Z16.21 Resistance to vancomycin; K80.20 Calculus of gallbladder without cholecystitis without obstruction; K74.60 Unspecified cirrhosis of liver; I25.10 Atherosclerotic heart disease of native coronary artery without angina pectoris; E87.5 Hyperkalemia; I10 Essential (primary) hypertension; E78.5 Hyperlipidemia, unspecified; I95.9 Hypotension, unspecified; E78.00 Pure hypercholesterolemia, unspecified; K76.82 Hepatic encephalopathy; Z95.5 Presence of coronary angioplasty implant and graft; Z88.5 Allergy status to narcotic agent; Z88.0 Allergy status to penicillin; Z79.899 Other long term (current) drug therapy; Z90.49 Acquired absence of other specified parts of digestive tract; Z98.890 Other specified postprocedural states; Z85.3 Personal history of malignant neoplasm of breast; I25.2 Old myocardial infarction
CPT/HCPCS: 36415; 36430; 74177; 80048; 80053; 81001; 82140; 83690; 83735; 84484; 85014; 85018; 85025; 85610; 85730; 86850; 86900; 86901; 86922; 87040; 87086; 93005; 93010; 96360; 96361; C9113; J0171; J0696; J0744; J1642; J2020; J2272; J2405; J2550; J3490; J7050; P9016; S0020

== ENCOUNTER 2023-08-16 05:38 | Inpatient (IN) | payer MEDICARE ==
[2023-08-16 06:28] LABS: #Eosinphils 0.7 10x3/uL (0.0-0.5); #Monocytes 0.6 10x3/uL (0.0-1.1); #Neutrophils 4.6 10x3/uL (1.5-8.4); %Basophils 0.6 % (0.0-2.0); %Eosinophils 9.6 % (0.0-6.0); %Lymphocytes 15.3 % (18.0-47.0); %Monocytes 8.6 % (0.0-10.0); %Neutrophils 65.5 % (40.0-75.0); Hematocrit 22.4 % (34.9-44.5); Hemoglobin 7.2 g/dL (12.0-15.5); Mean Corpuscular HGB CONC 32.1 g/dL (32.0-36.0); Mean Corpuscular Hemoglobin 34.3 pg (27.0-33.0); Mean Corpuscular Volume 106.7 fl (81.6-98.3); Mean Platelet Volume 9.5 fl (7.4-10.4); Platelet Count 135 10x3/uL (150-450); RBC Distribution Width 17.6 % (11.5-14.5)
[2023-08-16 06:38] LABS: ALT (SGPT) 22 U/L (8-55); AST (SGOT) 32 U/L (5-34); Albumin 2.5 g/dL (3.4-4.8); Alkaline Phosphatase 100 U/L (40-110); Anion Gap 11 mmol/L (10-20); BUN (Urea Nitrogen) 46 mg/dL (9.8-20.1); Bilirubin, Total 1.6 mg/dL (0.2-1.2); Calc. Creatinine Clearance 0 mL/min (70-130); Calcium 8.6 mg/dL (7.8-10.44); Carbon Dioxide 23 mmol/L (23-31); Chloride 105 mmol/L (98-107); Estimated GFR 33; Globulin 2.6 g/dL (2.4-3.5); Glucose 105 mg/dL (80-115); Lipase 61 U/L (8-78); Potassium 5.2 mmol/L (3.5-5.1); Protein, Total 5.1 g/dL (5.8-8.1); Sodium 134 mmol/L (136-145)
[2023-08-16] MEDS ORDERED: Octreotide Acetate 50 MCG/ML AMP ONE (07:01)
[2023-08-16] MEDS ORDERED: Ondansetron ODT 4 MG TAB PO PRN (08:39)
[2023-08-16] MEDS ORDERED: Acetaminophen 325 MG TAB PO PRN (08:39)
[2023-08-16] MEDS ORDERED: Iopamidol 300 61% 100 ML VIAL FS ONE (09:00)
[2023-08-16] MEDS: Sodium Chloride 0.9% 1,000 ML IV SCH ×2 (09:15→22:07)
[2023-08-16 09:59] LABS: INR-International Normal Ratio 1.3; PTT 34.1 sec (22.0-33.0); Prothrombin Time 13.9 sec (9.5-12.1)
[2023-08-16 10:03] LABS: Iron 48 ug/dL (50-170); Iron Binding Capacity, Total 235 mcg/dL (265-497)
[2023-08-16] MEDS ORDERED: Pantoprazole 40 MG VIAL ONE (12:24)
[2023-08-16] MEDS: tiZANidine HCl 4 MG TAB PO SCH ×2 (15:38→22:05)
[2023-08-16 18:57] VITALS: BMI 22.5
[2023-08-16] MEDS ORDERED: FLU VACC QS2023(65UP)/MF59C/PF 60 MCG/0.5 ML SYRINGE IM ONE (19:15)
[2023-08-16 20:44] LABS: Hematocrit 28.9 % (34.9-44.5); Hemoglobin 9.7 g/dL (12.0-15.5); Platelet Count 103 10x3/uL (150-450)
[2023-08-16] MEDS: Octreotide Acetate 1,250 MCG in Sodium Chloride 0.9% 250 ML 250 ML IVPB SCH (22:05)
[2023-08-16] MEDS: Pantoprazole 40 MG VIAL IVP SCH (22:05)
[2023-08-16] MEDS: HYDROcodone/Acetaminophen 5/325 mg Tablet PO PRN (22:29)
[2023-08-17 00:46] LABS: Hematocrit 26.8 % (34.9-44.5); Platelet Count 101 10x3/uL (150-450)
[2023-08-17 04:25] LABS: ALT (SGPT) 21 U/L (8-55); AST (SGOT) 32 U/L (5-34); Albumin 2.2 g/dL (3.4-4.8); Alkaline Phosphatase 83 U/L (40-110); Anion Gap 12 mmol/L (10-20); BUN (Urea Nitrogen) 36 mg/dL (9.8-20.1); Bilirubin, Total 2.6 mg/dL (0.2-1.2); Calc. Creatinine Clearance 45 mL/min (70-130); Calcium 8.1 mg/dL (7.8-10.44); Carbon Dioxide 19 mmol/L (23-31); Chloride 112 mmol/L (98-107); Estimated GFR 46; Globulin 2.2 g/dL (2.4-3.5); Glucose 87 mg/dL (80-115); Potassium 4.9 mmol/L (3.5-5.1); Protein, Total 4.4 g/dL (5.8-8.1); Sodium 138 mmol/L (136-145)
[2023-08-17 04:27] LABS: #Eosinphils 0.4 10x3/uL (0.0-0.5); #Monocytes 0.3 10x3/uL (0.0-1.1); %Basophils 0.6 % (0.0-2.0); %Eosinophils 11.8 % (0.0-6.0); %Lymphocytes 20.8 % (18.0-47.0); %Monocytes 9.5 % (0.0-10.0); Hematocrit 25.9 % (34.9-44.5); Hemoglobin 8.6 g/dL (12.0-15.5); Mean Corpuscular HGB CONC 33.2 g/dL (32.0-36.0); Mean Corpuscular Hemoglobin 32.8 pg (27.0-33.0); Mean Corpuscular Volume 98.9 fl (81.6-98.3); Mean Platelet Volume 9.4 fl (7.4-10.4); Platelet Count 100 10x3/uL (150-450); RBC Distribution Width 21.6 % (11.5-14.5); Red Blood Cell (RBC) Count 2.62 10x6/uL (3.90-5.03); White Blood Cell (WBC) Count 3.5 10x3/uL (3.5-10.5)
[2023-08-17] MEDS: Sodium Chloride 0.9% 1,000 ML IV SCH (05:09)
[2023-08-17] MEDS: Pantoprazole 40 MG VIAL IVP SCH ×2 (09:37→21:10)
[2023-08-17] MEDS: tiZANidine HCl 4 MG TAB PO SCH ×3 (09:37→21:05)
[2023-08-17] MEDS: Loratadine 10 MG TAB PO SCH ×2 (09:37→21:04)
[2023-08-17] MEDS: Rifaximin 200 MG TAB PO SCH ×2 (09:38→21:04)
[2023-08-17 09:50] LABS: Hemoglobin 7.8 g/dL (12.0-15.5)
[2023-08-17 09:51] LABS: Hematocrit 23.7 % (34.9-44.5); Platelet Count 90 10x3/uL (150-450)
[2023-08-17 11:58] LABS: Hematocrit 26.9 % (34.9-44.5); Hemoglobin 8.7 g/dL (12.0-15.5); Platelet Count 93 10x3/uL (150-450)
[2023-08-18 05:21] LABS: #Eosinphils 0.4 10x3/uL (0.0-0.5); #Monocytes 0.4 10x3/uL (0.0-1.1); #Neutrophils 3.2 10x3/uL (1.5-8.4); %Basophils 0.6 % (0.0-2.0); %Eosinophils 8.6 % (0.0-6.0); %Lymphocytes 14.1 % (18.0-47.0); %Monocytes 9.3 % (0.0-10.0); %Neutrophils 67.2 % (40.0-75.0); Hematocrit 28.8 % (34.9-44.5); Hemoglobin 9.6 g/dL (12.0-15.5); Mean Corpuscular HGB CONC 33.3 g/dL (32.0-36.0); Mean Corpuscular Hemoglobin 33.2 pg (27.0-33.0); Mean Corpuscular Volume 99.7 fl (81.6-98.3); Mean Platelet Volume 9.5 fl (7.4-10.4); Platelet Count 101 10x3/uL (150-450); RBC Distribution Width 20.7 % (11.5-14.5); Red Blood Cell (RBC) Count 2.89 10x6/uL (3.90-5.03); White Blood Cell (WBC) Count 4.8 10x3/uL (3.5-10.5)
[2023-08-18 05:28] LABS: ALT (SGPT) 28 U/L (8-55); AST (SGOT) 43 U/L (5-34); Albumin 2.4 g/dL (3.4-4.8); Alkaline Phosphatase 92 U/L (40-110); Anion Gap 12 mmol/L (10-20); BUN (Urea Nitrogen) 21 mg/dL (9.8-20.1); Calc. Creatinine Clearance 55 mL/min (70-130); Calcium 8.3 mg/dL (7.8-10.44); Carbon Dioxide 18 mmol/L (23-31); Chloride 112 mmol/L (98-107); Estimated GFR 59; Globulin 2.6 g/dL (2.4-3.5); Glucose 117 mg/dL (80-115); Potassium 4.9 mmol/L (3.5-5.1); Sodium 137 mmol/L (136-145)
[2023-08-18] MEDS: Pantoprazole 40 MG VIAL IVP SCH ×2 (08:47→20:21)
[2023-08-18] MEDS: Rifaximin 200 MG TAB PO SCH ×2 (08:48→20:20)
[2023-08-18] MEDS: Loratadine 10 MG TAB PO SCH ×2 (08:48→20:20)
[2023-08-18] MEDS: tiZANidine HCl 4 MG TAB PO SCH ×3 (08:49→20:20)
[2023-08-18] MEDS: Octreotide Acetate 1,250 MCG in Sodium Chloride 0.9% 250 ML 250 ML IVPB SCH (10:00)
[2023-08-18] MEDS: HYDROcodone/Acetaminophen 5/325 mg Tablet PO PRN (17:18)
[2023-08-19] MEDS: Pantoprazole 40 MG VIAL IVP SCH ×2 (09:25→22:35)
[2023-08-19] MEDS: tiZANidine HCl 4 MG TAB PO SCH ×3 (09:25→22:35)
[2023-08-19] MEDS: Rifaximin 200 MG TAB PO SCH ×2 (09:25→22:40)
[2023-08-19] MEDS: Loratadine 10 MG TAB PO SCH ×2 (09:26→22:35)
[2023-08-19 14:21] LABS: #Eosinphils 0.3 10x3/uL (0.0-0.5); #Monocytes 0.5 10x3/uL (0.0-1.1); #Neutrophils 5.4 10x3/uL (1.5-8.4); %Basophils 0.1 % (0.0-2.0); %Eosinophils 4.7 % (0.0-6.0); %Monocytes 7.7 % (0.0-10.0); %Neutrophils 76.4 % (40.0-75.0); Hematocrit 28.2 % (34.9-44.5); Hemoglobin 9.3 g/dL (12.0-15.5); Mean Corpuscular Hemoglobin 32.7 pg (27.0-33.0); Mean Corpuscular Volume 99.3 fl (81.6-98.3); Mean Platelet Volume 9.4 fl (7.4-10.4); Platelet Count 88 10x3/uL (150-450); RBC Distribution Width 20.2 % (11.5-14.5); Red Blood Cell (RBC) Count 2.84 10x6/uL (3.90-5.03)
[2023-08-19 14:31] LABS: Anion Gap 12 mmol/L (10-20); BUN (Urea Nitrogen) 14 mg/dL (9.8-20.1); Calc. Creatinine Clearance 60 mL/min (70-130); Calcium 8.2 mg/dL (7.8-10.44); Carbon Dioxide 16 mmol/L (23-31); Chloride 111 mmol/L (98-107); Estimated GFR 66; Glucose 110 mg/dL (80-115); Sodium 135 mmol/L (136-145)
[2023-08-20 04:37] LABS: #Eosinphils 0.4 10x3/uL (0.0-0.5); #Monocytes 0.6 10x3/uL (0.0-1.1); #Neutrophils 4.7 10x3/uL (1.5-8.4); %Basophils 0.3 % (0.0-2.0); %Eosinophils 6.1 % (0.0-6.0); %Lymphocytes 11.5 % (18.0-47.0); %Monocytes 9.5 % (0.0-10.0); %Neutrophils 72.3 % (40.0-75.0); Hematocrit 28.3 % (34.9-44.5); Hemoglobin 9.6 g/dL (12.0-15.5); Mean Corpuscular HGB CONC 33.9 g/dL (32.0-36.0); Mean Corpuscular Hemoglobin 33.3 pg (27.0-33.0); Mean Corpuscular Volume 98.3 fl (81.6-98.3); Mean Platelet Volume 9.3 fl (7.4-10.4); Platelet Count 97 10x3/uL (150-450); Red Blood Cell (RBC) Count 2.88 10x6/uL (3.90-5.03); White Blood Cell (WBC) Count 6.4 10x3/uL (3.5-10.5)
[2023-08-20 04:40] LABS: Anion Gap 11 mmol/L (10-20); BUN (Urea Nitrogen) 12 mg/dL (9.8-20.1); Calc. Creatinine Clearance 64 mL/min (70-130); Calcium 7.9 mg/dL (7.8-10.44); Carbon Dioxide 18 mmol/L (23-31); Chloride 110 mmol/L (98-107); Estimated GFR 70; Glucose 102 mg/dL (80-115); Potassium 4.1 mmol/L (3.5-5.1); Sodium 135 mmol/L (136-145)
[2023-08-20 04:51] LABS: Platelet Adequacy Comment Appears Decreased; RBC Morph Comment Within Normal Limits
[2023-08-20] MEDS: Loratadine 10 MG TAB PO SCH (09:25)
[2023-08-20] MEDS: tiZANidine HCl 4 MG TAB PO SCH ×2 (09:25→16:29)
[2023-08-20] MEDS: Rifaximin 200 MG TAB PO SCH (09:26)
[2023-08-20] MEDS: Pantoprazole 40 MG VIAL IVP SCH (09:30)
[2023-08-20 16:46] VITALS: BP 103/51; TEMP 98.2
== END 2023-08-20 16:00 | disposition home or self-care (01) | DRG 378 ==
LOC: CSHERS 05:38 → CSHERHOLD 08:24 → CSHTELE 15:41
PROVIDERS: ADMIT Family Medicine; ATTEND Family Medicine
PROC: 30233N1 Transfusion of Nonautologous Red Blood Cells into Peripheral Vein, Percutaneous Approach (ICD-10-PCS; principal; 2023-08-16)
DX: K31.811 Angiodysplasia of stomach and duodenum with bleeding (principal); D62 Acute posthemorrhagic anemia; I50.22 Chronic systolic (congestive) heart failure; S32.049A Unspecified fracture of fourth lumbar vertebra, initial encounter for closed fracture; N17.9 Acute kidney failure, unspecified; K76.82 Hepatic encephalopathy; E78.5 Hyperlipidemia, unspecified; I25.10 Atherosclerotic heart disease of native coronary artery without angina pectoris; K74.69 Other cirrhosis of liver; Z88.0 Allergy status to penicillin; Z88.5 Allergy status to narcotic agent; Z79.899 Other long term (current) drug therapy; Z85.3 Personal history of malignant neoplasm of breast; Z92.21 Personal history of antineoplastic chemotherapy; Z92.3 Personal history of irradiation; Z98.890 Other specified postprocedural states; Z95.818 Presence of other cardiac implants and grafts; W18.39XA Other fall on same level, initial encounter
CPT/HCPCS: 36415; 36430; 72100; 74177; 80048; 80053; 82140; 82728; 83540; 83550; 83690; 85025; 85610; 85730; 86850; 86900; 86901; 86922; 96374; 96375; C9113; J1642; J2354; J7050; P9016; P9040; Q9967

== ENCOUNTER 2023-08-29 09:36 | Inpatient (IN) | payer MEDICARE ==
[2023-08-29] MEDS ORDERED: Acetaminophen 325 MG TAB PO PRN (12:13)
[2023-08-29] MEDS ORDERED: Ondansetron ODT 4 MG TAB PO PRN ×2 (12:13→12:26)
[2023-08-29] MEDS ORDERED: Diclofenac 1% 100 GM Topical GEL TP PRN (12:26)
[2023-08-29] MEDS ORDERED: Albumin 25% 25 GM/100 ML BOT IVPB SCH (13:00)
[2023-08-29 13:42] LABS: Anion Gap 12 mmol/L (10-20); BUN (Urea Nitrogen) 16 mg/dL (9.8-20.1); Calc. Creatinine Clearance 0 mL/min (70-130); Calcium 10.1 mg/dL (7.8-10.44); Carbon Dioxide 24 mmol/L (23-31); Chloride 105 mmol/L (98-107); Estimated GFR 60; Glucose 79 mg/dL (80-115); Sodium 136 mmol/L (136-145)
[2023-08-29 13:49] LABS: Troponin I Less than 0.010 ng/mL (< 0.028)
[2023-08-29] MEDS ORDERED: FLU VACC QS2023(65UP)/MF59C/PF 60 MCG/0.5 ML SYRINGE IM ONE (16:15)
[2023-08-29] MEDS ORDERED: Preparation H Ointment 57 gram tube TOP PRN (17:03)
[2023-08-29] MEDS: Ondansetron PF 4 MG/2 ML Vial IVP PRN (17:18)
[2023-08-29] MEDS ORDERED: D3 PO SCH (21:00)
[2023-08-29] MEDS ORDERED: GLUCOSAMINE PO SCH (21:00)
[2023-08-29] MEDS ORDERED: [UNRECOGNIZED DRUG - OTHER] PO SCH (21:00)
[2023-08-29] MEDS ORDERED: BOSWELLIA SERRA PO SCH (21:00)
[2023-08-29] MEDS: Rifaximin 200 MG TAB PO SCH (21:50)
[2023-08-29] MEDS: Loratadine 10 MG TAB PO SCH (21:50)
[2023-08-29] MEDS: fentaNYL 50 mcg/mL 1 mL Vial SLOW IVP PRN (23:43)
[2023-08-30 04:20] LABS: #Eosinphils 0.3 10x3/uL (0.0-0.5); #Monocytes 0.6 10x3/uL (0.0-1.1); #Neutrophils 5.9 10x3/uL (1.5-8.4); %Basophils 0.5 % (0.0-2.0); %Eosinophils 3.6 % (0.0-6.0); %Lymphocytes 11.4 % (18.0-47.0); %Monocytes 8.3 % (0.0-10.0); %Neutrophils 75.8 % (40.0-75.0); Hematocrit 28.5 % (34.9-44.5); Hemoglobin 9.4 g/dL (12.0-15.5); Mean Platelet Volume 8.6 fl (7.4-10.4); Platelet Count 114 10x3/uL (150-450); RBC Distribution Width 18.9 % (11.5-14.5); Red Blood Cell (RBC) Count 2.85 10x6/uL (3.90-5.03); White Blood Cell (WBC) Count 7.7 10x3/uL (3.5-10.5)
[2023-08-30 04:30] LABS: Anion Gap 11 mmol/L (10-20); BUN (Urea Nitrogen) 14 mg/dL (9.8-20.1); Calc. Creatinine Clearance 53 mL/min (70-130); Calcium 9.6 mg/dL (7.8-10.44); Carbon Dioxide 25 mmol/L (23-31); Chloride 106 mmol/L (98-107); Estimated GFR 62; Glucose 78 mg/dL (80-115); Potassium 4.2 mmol/L (3.5-5.1); Sodium 138 mmol/L (136-145)
[2023-08-30 04:39] LABS: Macrocytosis SLIGHT = 6-15 cells (100X) (0-5/hpf); Platelet Adequacy Comment Appears Decreased
[2023-08-30 09:08] VITALS: BMI 23.9
[2023-08-30] MEDS: Ondansetron PF 4 MG/2 ML Vial IVP PRN (09:26)
[2023-08-30] MEDS ORDERED: Metoclopramide HCl 10 MG/2 ML VIAL IVP SCH (10:00)
[2023-08-30] MEDS ORDERED: Promethazine HCl 25 MG in Sodium Chloride 0.9% 50 ML IVPB PRN (10:06)
[2023-08-30] MEDS ORDERED: Promethazine HCl 12.5 MG in Sodium Chloride 0.9% 50 ML IVPB PRN (11:47)
[2023-08-30] MEDS ORDERED: Pantoprazole 40 MG VIAL IVP SCH (12:00)
[2023-08-30] MEDS ORDERED: Ondansetron PF 4 MG/2 ML Vial IVP SCH (12:00)
[2023-08-30] MEDS: Loratadine 10 MG TAB PO SCH ×2 (13:08→20:24)
[2023-08-30] MEDS: Cholecalciferol 1,000 UNITS (25 MCG) TAB PO SCH (13:08)
[2023-08-30] MEDS: Floranex 1 GM Packet PO SCH (13:08)
[2023-08-30] MEDS: Zinc Sulfate 220 MG CAP PO SCH (13:09)
[2023-08-30] MEDS: CO Q-10 CAPSULE 50 MG PO SCH (13:09)
[2023-08-30] MEDS: Multivitamin w/Zinc Stress 1 TAB PO SCH (13:09)
[2023-08-30] MEDS: Rifaximin 200 MG TAB PO SCH ×2 (13:09→20:24)
[2023-08-30] MEDS: Multivitamin W/ Minerals 1 TAB PO SCH (13:09)
[2023-08-30] MEDS: Thiamine 100 MG TAB PO SCH (13:09)
[2023-08-30] MEDS: Albumin 25% 25 GM/100 ML BOT IVPB SCH ×3 (13:18→23:18)
[2023-08-30] MEDS: Ondansetron PF 4 MG/2 ML Vial IVP SCH ×2 (13:24→21:25)
[2023-08-30] MEDS ORDERED: Calcium Carbonate 500 MG ChewTAB PO PRN (13:58)
[2023-08-30] MEDS: Pantoprazole 40 MG VIAL IVP SCH (20:24)
[2023-08-30] MEDS: fentaNYL 50 mcg/mL 1 mL Vial SLOW IVP PRN (20:35)
[2023-08-31] MEDS ORDERED: Lactated Ringer's 500 ML IV SCH (00:45)
[2023-08-31 04:04] LABS: #Eosinphils 0.2 10x3/uL (0.0-0.5); #Monocytes 0.5 10x3/uL (0.0-1.1); #Neutrophils 5.1 10x3/uL (1.5-8.4); %Basophils 0.5 % (0.0-2.0); %Eosinophils 3.2 % (0.0-6.0); %Monocytes 7.8 % (0.0-10.0); %Neutrophils 76.2 % (40.0-75.0); Hematocrit 23.8 % (34.9-44.5); Hemoglobin 7.8 g/dL (12.0-15.5); Mean Corpuscular HGB CONC 32.8 g/dL (32.0-36.0); Mean Corpuscular Hemoglobin 33.2 pg (27.0-33.0); Mean Corpuscular Volume 101.3 fl (81.6-98.3); Mean Platelet Volume 8.8 fl (7.4-10.4); Platelet Count 132 10x3/uL (150-450); RBC Distribution Width 18.6 % (11.5-14.5); Red Blood Cell (RBC) Count 2.35 10x6/uL (3.90-5.03); White Blood Cell (WBC) Count 6.6 10x3/uL (3.5-10.5)
[2023-08-31 04:07] LABS: ALT (SGPT) 16 U/L (8-55); AST (SGOT) 25 U/L (5-34); Albumin 3.5 g/dL (3.4-4.8); Alkaline Phosphatase 89 U/L (40-110); Anion Gap 11 mmol/L (10-20); BUN (Urea Nitrogen) 23 mg/dL (9.8-20.1); Bilirubin, Total 2.6 mg/dL (0.2-1.2); Calc. Creatinine Clearance 66 mL/min (70-130); Calcium 10.5 mg/dL (7.8-10.44); Carbon Dioxide 23 mmol/L (23-31); Chloride 107 mmol/L (98-107); Estimated GFR 76; Globulin 1.8 g/dL (2.4-3.5); Glucose 76 mg/dL (80-115); Magnesium 1.7 mg/dL (1.6-2.6); Potassium 4.5 mmol/L (3.5-5.1); Protein, Total 5.3 g/dL (5.8-8.1); Sodium 136 mmol/L (136-145)
[2023-08-31 04:08] LABS: Lipase 46 U/L (8-78)
[2023-08-31 04:14] LABS: Phosphorus 1.5 mg/dL (2.3-4.7)
[2023-08-31] MEDS ORDERED: Sodium Phosphate 15 MMOL in Sodium Chloride 0.9% 250 ML 250 ML IVPB SCH (05:00)
[2023-08-31] MEDS: Ondansetron PF 4 MG/2 ML Vial IVP SCH ×3 (05:26→21:36)
[2023-08-31] MEDS: Loratadine 10 MG TAB PO SCH ×2 (08:38→21:33)
[2023-08-31] MEDS: Multivitamin W/ Minerals 1 TAB PO SCH (08:38)
[2023-08-31] MEDS: Multivitamin w/Zinc Stress 1 TAB PO SCH (08:39)
[2023-08-31] MEDS: Cholecalciferol 1,000 UNITS (25 MCG) TAB PO SCH (08:39)
[2023-08-31] MEDS: Thiamine 100 MG TAB PO SCH (08:39)
[2023-08-31] MEDS: Rifaximin 200 MG TAB PO SCH ×2 (08:39→21:34)
[2023-08-31] MEDS: CO Q-10 CAPSULE 50 MG PO SCH (08:39)
[2023-08-31] MEDS: Zinc Sulfate 220 MG CAP PO SCH (08:40)
[2023-08-31] MEDS: Pantoprazole 40 MG VIAL IVP SCH ×2 (08:40→21:36)
[2023-08-31] MEDS: Floranex 1 GM Packet PO SCH (08:41)
[2023-08-31] MEDS ORDERED: Magnesium 2 GM/50 ML(in water) 2 GM in Premix 1 BAG IVPB SCH (09:00)
[2023-09-01 04:10] LABS: Phosphorus 1.8 mg/dL (2.3-4.7)
[2023-09-01 04:11] LABS: #Basophils 0.1 10x3/uL (0.0-0.2); #Eosinphils 0.5 10x3/uL (0.0-0.5); #Monocytes 0.5 10x3/uL (0.0-1.1); #Neutrophils 4.1 10x3/uL (1.5-8.4); %Basophils 0.8 % (0.0-2.0); %Eosinophils 8.3 % (0.0-6.0); %Lymphocytes 15.3 % (18.0-47.0); %Monocytes 8.4 % (0.0-10.0); %Neutrophils 66.9 % (40.0-75.0); Hematocrit 23.7 % (34.9-44.5); Hemoglobin 7.8 g/dL (12.0-15.5); Mean Corpuscular HGB CONC 32.9 g/dL (32.0-36.0); Mean Corpuscular Hemoglobin 33.3 pg (27.0-33.0); Mean Corpuscular Volume 101.3 fl (81.6-98.3); Mean Platelet Volume 8.4 fl (7.4-10.4); Platelet Count 144 10x3/uL (150-450); RBC Distribution Width 18.3 % (11.5-14.5); Red Blood Cell (RBC) Count 2.34 10x6/uL (3.90-5.03); White Blood Cell (WBC) Count 6.1 10x3/uL (3.5-10.5)
[2023-09-01 04:13] LABS: ALT (SGPT) 17 U/L (8-55); AST (SGOT) 31 U/L (5-34); Alkaline Phosphatase 92 U/L (40-110); Anion Gap 12 mmol/L (10-20); BUN (Urea Nitrogen) 17 mg/dL (9.8-20.1); Bilirubin, Total 2.3 mg/dL (0.2-1.2); Calc. Creatinine Clearance 69 mL/min (70-130); Calcium 9.7 mg/dL (7.8-10.44); Carbon Dioxide 18 mmol/L (23-31); Chloride 111 mmol/L (98-107); Estimated GFR 79; Globulin 1.8 g/dL (2.4-3.5); Glucose 70 mg/dL (80-115); Magnesium 2.3 mg/dL (1.6-2.6); Potassium 4.1 mmol/L (3.5-5.1); Protein, Total 4.8 g/dL (5.8-8.1); Sodium 137 mmol/L (136-145)
[2023-09-01] MEDS: Ondansetron PF 4 MG/2 ML Vial IVP SCH (07:22)
[2023-09-01 08:25] VITALS: BP 119/56; TEMP 98.5
[2023-09-01] MEDS: Zinc Sulfate 220 MG CAP PO SCH (08:27)
[2023-09-01] MEDS: Pantoprazole 40 MG VIAL IVP SCH (08:27)
[2023-09-01] MEDS: Multivitamin W/ Minerals 1 TAB PO SCH (08:27)
[2023-09-01] MEDS: Loratadine 10 MG TAB PO SCH (08:27)
[2023-09-01] MEDS: Thiamine 100 MG TAB PO SCH (08:27)
[2023-09-01] MEDS: CO Q-10 CAPSULE 50 MG PO SCH (08:27)
[2023-09-01] MEDS: Rifaximin 200 MG TAB PO SCH (08:27)
[2023-09-01] MEDS: Multivitamin w/Zinc Stress 1 TAB PO SCH (08:28)
[2023-09-01] MEDS: Floranex 1 GM Packet PO SCH (08:28)
[2023-09-01] MEDS: Cholecalciferol 1,000 UNITS (25 MCG) TAB PO SCH (08:28)
[2023-09-01] MEDS ORDERED: Sodium Phosphate 30 MMOL in Sodium Chloride 0.9% 250 ML 250 ML IVPB SCH (09:00)
== END 2023-09-01 13:25 | disposition home or self-care (01) | DRG 433 ==
LOC: CSHTELE 10:48 → OBSVTOIN 08-31 12:49
PROVIDERS: ADMIT Internal Medicine; ATTEND Internal Medicine
PROC: 30233J1 Transfusion of Nonautologous Serum Albumin into Peripheral Vein, Percutaneous Approach (ICD-10-PCS; principal; 2023-08-30)
DX: K74.69 Other cirrhosis of liver (principal); E44.0 Moderate protein-calorie malnutrition; S32.049A Unspecified fracture of fourth lumbar vertebra, initial encounter for closed fracture; E87.1 Hypo-osmolality and hyponatremia; K80.20 Calculus of gallbladder without cholecystitis without obstruction; E86.0 Dehydration; E78.5 Hyperlipidemia, unspecified; I50.9 Heart failure, unspecified; W18.30XA Fall on same level, unspecified, initial encounter; I25.10 Atherosclerotic heart disease of native coronary artery without angina pectoris; Z98.890 Other specified postprocedural states; Z88.5 Allergy status to narcotic agent; Z88.0 Allergy status to penicillin; Z79.899 Other long term (current) drug therapy; I95.89 Other hypotension; E83.42 Hypomagnesemia; E83.39 Other disorders of phosphorus metabolism; E87.5 Hyperkalemia; N18.2 Chronic kidney disease, stage 2 (mild); D63.1 Anemia in chronic kidney disease; Z85.3 Personal history of malignant neoplasm of breast
CPT/HCPCS: 76705; 80048; 80053; 83690; 83735; 83880; 84100; 84484; 85025; 94760; 96374; 96375; 96376; C9113; G0378; J1642; J2405; J2550; J3010; J3475; J7050; J7120; P9047

== ENCOUNTER 2023-09-10 14:45 | Emergency (ER) | payer MEDICARE ==
[2023-09-10 16:03] LABS: SARS-CoV-2 NAA Rapid Test Not Detected (NotDetected)
[2023-09-10 16:39] LABS: #Eosinphils 0.1 10x3/uL (0.0-0.5); #Monocytes 0.6 10x3/uL (0.0-1.1); #Neutrophils 8.6 10x3/uL (1.5-8.4); %Basophils 0.3 % (0.0-2.0); %Eosinophils 0.9 % (0.0-6.0); %Lymphocytes 3.3 % (18.0-47.0); %Monocytes 6.1 % (0.0-10.0); %Neutrophils 89.1 % (40.0-75.0); Hematocrit 24.2 % (34.9-44.5); Mean Corpuscular HGB CONC 33.1 g/dL (32.0-36.0); Mean Corpuscular Hemoglobin 34.2 pg (27.0-33.0); Mean Corpuscular Volume 103.4 fl (81.6-98.3); Platelet Count 129 10x3/uL (150-450); RBC Distribution Width 18.5 % (11.5-14.5); Red Blood Cell (RBC) Count 2.34 10x6/uL (3.90-5.03); White Blood Cell (WBC) Count 9.7 10x3/uL (3.5-10.5)
[2023-09-10 16:46] LABS: ALT (SGPT) 25 U/L (8-55); AST (SGOT) 32 U/L (5-34); Albumin 2.9 g/dL (3.4-4.8); Alkaline Phosphatase 152 U/L (40-110); Anion Gap 12 mmol/L (10-20); BUN (Urea Nitrogen) 9 mg/dL (9.8-20.1); Bilirubin, Total 1.9 mg/dL (0.2-1.2); CK (CPK) 33 U/L (29-168); Calc. Creatinine Clearance 0 mL/min (70-130); Calcium 8.4 mg/dL (7.8-10.44); Carbon Dioxide 15 mmol/L (23-31); Chloride 108 mmol/L (98-107); Estimated GFR 77; Globulin 2.2 g/dL (2.4-3.5); Glucose 97 mg/dL (80-115); Lipase 76 U/L (8-78); Potassium 4.6 mmol/L (3.5-5.1); Protein, Total 5.1 g/dL (5.8-8.1); Sodium 130 mmol/L (136-145)
[2023-09-10 16:52] LABS: Troponin I Less than 0.010 ng/mL (< 0.028)
[2023-09-10 18:17] LABS: Bilirubin Neg (Negative); Blood, Urine 10 (Negative); Clarity Slightly Cloudy (Clear); Glucose, Urine (Dipstick) Normal (Negative); Ketone, Urine Negative (Negative); Leukocyte 25 (Negative); Nitrite Positive (Negative); Protein, Urine (Dipstick) 30 mg/dl (Neg-Trace); Specific Gravity, Urine 1.015 (1.005-1.030); Urobilinogen Normal mg/dL (Less than 2)
[2023-09-10 18:37] LABS: CAUTI Indications for Culture Fever or rigors; RBC/HPF 0-3 HPF (0-3); Squamous Epithelial 0-3 HPF (0-3)
[2023-09-10 18:38] LABS: Bacteria/HPF 4+ HPF (None Seen)
[2023-09-10 18:39] LABS: Urine Culture Reflex Yes Yes
[2023-09-10] MEDS ORDERED: cefTRIAXone (ROCEPHIN) 1 GM VIAL ONE (18:46)
== END 2023-09-10 18:48 | disposition home or self-care (01) ==
LOC: CSHERS 14:45
DX: K76.9 Liver disease, unspecified (principal); N39.0 Urinary tract infection, site not specified; E78.00 Pure hypercholesterolemia, unspecified; K21.9 Gastro-esophageal reflux disease without esophagitis; Z87.891 Personal history of nicotine dependence
CPT/HCPCS: 0240U; 71045; 81001; 82140; 82550; 83605; 83690; 83880; 84484; 87077; 87086; 87186; 93005; 80053; 84443; 85025; 96374; 96375; J0696; J1642

== ENCOUNTER 2023-09-13 12:55 | Inpatient (IN) | payer MEDICARE ==
[2023-09-13 14:18] LABS: #Eosinphils 0.2 10x3/uL (0.0-0.5); #Monocytes 0.4 10x3/uL (0.0-1.1); #Neutrophils 6.1 10x3/uL (1.5-8.4); %Basophils 0.1 % (0.0-2.0); %Monocytes 5.5 % (0.0-10.0); %Neutrophils 83.4 % (40.0-75.0); Hematocrit 16.4 % (34.9-44.5); Hemoglobin 5.3 g/dL (12.0-15.5); Mean Corpuscular HGB CONC 32.3 g/dL (32.0-36.0); Mean Corpuscular Hemoglobin 34.6 pg (27.0-33.0); Mean Corpuscular Volume 107.2 fl (81.6-98.3); Mean Platelet Volume 9.1 fl (7.4-10.4); Platelet Count 126 10x3/uL (150-450); RBC Distribution Width 18.7 % (11.5-14.5); Red Blood Cell (RBC) Count 1.53 10x6/uL (3.90-5.03); White Blood Cell (WBC) Count 7.3 10x3/uL (3.5-10.5)
[2023-09-13 14:41] LABS: ALT (SGPT) 21 U/L (8-55); AST (SGOT) 23 U/L (5-34); Albumin 2.3 g/dL (3.4-4.8); Alkaline Phosphatase 94 U/L (40-110); Anion Gap 13 mmol/L (10-20); BUN (Urea Nitrogen) 30 mg/dL (9.8-20.1); Bilirubin, Total 1.5 mg/dL (0.2-1.2); Calc. Creatinine Clearance 0 mL/min (70-130); Calcium 9.7 mg/dL (7.8-10.44); Carbon Dioxide 14 mmol/L (23-31); Chloride 107 mmol/L (98-107); Estimated GFR 82; Globulin 1.6 g/dL (2.4-3.5); Glucose 103 mg/dL (80-115); Potassium 5.1 mmol/L (3.5-5.1); Protein, Total 3.9 g/dL (5.8-8.1); Sodium 129 mmol/L (136-145)
[2023-09-13 14:43] LABS: INR-International Normal Ratio 1.5; Prothrombin Time 15.8 sec (9.5-12.1)
[2023-09-13 14:50] LABS: PTT Greater than 139.0 sec (22.0-33.0)
[2023-09-13] MEDS ORDERED: Pantoprazole 40 MG VIAL ONE (15:05)
[2023-09-13] MEDS ORDERED: Octreotide Acetate 1,250 MCG in Sodium Chloride 0.9% 250 ML 250 ML IVPB SCH (15:15)
[2023-09-13] MEDS ORDERED: HYDROcodone/Acetaminophen 5/325 mg Tablet PO PRN (16:24)
[2023-09-13] MEDS ORDERED: Acetaminophen 325 MG TAB PO PRN (16:24)
[2023-09-13 20:01] VITALS: BMI 23.1
[2023-09-13 20:31] LABS: Hematocrit 17.5 % (34.9-44.5)
[2023-09-13] MEDS: Pantoprazole 40 MG VIAL IVP SCH (20:31)
[2023-09-13] MEDS: Octreotide Acetate 100 MCG/ML VIAL SLOW IVP SCH (20:31)
[2023-09-13] MEDS: Ondansetron PF 4 MG/2 ML Vial IVP PRN (20:39)
[2023-09-14 02:34] LABS: Hematocrit 20.5 % (34.9-44.5)
[2023-09-14 06:50] LABS: Hematocrit 19.6 % (34.9-44.5)
[2023-09-14 07:02] LABS: ALT (SGPT) 21 U/L (8-55); AST (SGOT) 26 U/L (5-34); Alkaline Phosphatase 81 U/L (40-110); Anion Gap 11 mmol/L (10-20); BUN (Urea Nitrogen) 28 mg/dL (9.8-20.1); Bilirubin, Total 2.9 mg/dL (0.2-1.2); Calc. Creatinine Clearance 74 mL/min (70-130); Calcium 8.8 mg/dL (7.8-10.44); Carbon Dioxide 17 mmol/L (23-31); Chloride 109 mmol/L (98-107); Estimated GFR 91; Globulin 1.6 g/dL (2.4-3.5); Glucose 68 mg/dL (80-115); Potassium 5.1 mmol/L (3.5-5.1); Protein, Total 3.6 g/dL (5.8-8.1); Sodium 132 mmol/L (136-145)
[2023-09-14] MEDS ORDERED: FLU VACC QS2023(65UP)/MF59C/PF 60 MCG/0.5 ML SYRINGE IM ONE (09:00)
[2023-09-14] MEDS: Midodrine HCl 5 MG TAB PO SCH ×3 (09:32→22:08)
[2023-09-14] MEDS: Pantoprazole 40 MG VIAL IVP SCH ×2 (09:32→22:08)
[2023-09-14 09:48] LABS: INR-International Normal Ratio 1.5; PTT 37.4 sec (22.0-33.0); Prothrombin Time 15.6 sec (9.5-12.1)
[2023-09-14 09:54] LABS: #Eosinphils 0.2 10x3/uL (0.0-0.5); #Monocytes 0.4 10x3/uL (0.0-1.1); %Basophils 0.4 % (0.0-2.0); %Eosinophils 4.4 % (0.0-6.0); %Monocytes 6.9 % (0.0-10.0); %Neutrophils 76.9 % (40.0-75.0); Hematocrit 19.5 % (34.9-44.5); Hemoglobin 6.6 g/dL (12.0-15.5); Mean Corpuscular HGB CONC 33.8 g/dL (32.0-36.0); Mean Corpuscular Hemoglobin 31.9 pg (27.0-33.0); Mean Corpuscular Volume 94.2 fl (81.6-98.3); Mean Platelet Volume 8.9 fl (7.4-10.4); Platelet Count 88 10x3/uL (150-450); RBC Distribution Width 19.1 % (11.5-14.5); Red Blood Cell (RBC) Count 2.07 10x6/uL (3.90-5.03); White Blood Cell (WBC) Count 5.3 10x3/uL (3.5-10.5)
[2023-09-14] MEDS: Octreotide Acetate 100 MCG/ML VIAL SLOW IVP SCH ×2 (11:38→22:43)
[2023-09-14] MEDS: Nadolol 40 MG TAB PO SCH (11:38)
[2023-09-14] MEDS: Lactated Ringer's 1,000 ML IV SCH (11:38)
[2023-09-14 12:01] LABS: Microcytosis SLIGHT = 6-15 cells (100X) (0-5/hpf); Ovalocytes SLIGHT = 2-5 cells (100X) (0-1/hpf); Polychromasia SLIGHT = 2-3 cells (100X) (0-2/hpf)
[2023-09-14 12:02] LABS: Platelet Adequacy Comment Appears Decreased
[2023-09-14] MEDS ORDERED: Dextrose 50% Abboject 50 ML SYRINGE SLOW IVP SCH (12:45)
[2023-09-14] MEDS ORDERED: Dextrose 50% Abboject 50 ML SYRINGE ONE (12:45)
[2023-09-14] MEDS ORDERED: KETAMINE 100 MG/ML (5ML VIAL) ONE (13:07)
[2023-09-14] MEDS ORDERED: Lidocaine 2% MPF 10 ML AMP (For Epidural Use) ONE (13:09)
[2023-09-14] MEDS ORDERED: PROPOFOL 20 ML ONE (13:09)
[2023-09-14] MEDS: Rifaximin 200 MG TAB PO SCH ×2 (17:07→22:07)
[2023-09-14] MEDS: oxyCODONE 5 MG TAB PO PRN (17:15)
[2023-09-14] MEDS: LACTINEX 1 TAB PO SCH (22:08)
[2023-09-14] MEDS: OTEZLA PO SCH (22:09)
[2023-09-15] MEDS: oxyCODONE 5 MG TAB PO PRN ×3 (02:19→18:04)
[2023-09-15 04:24] LABS: #Eosinphils 0.6 10x3/uL (0.0-0.5); #Monocytes 0.4 10x3/uL (0.0-1.1); #Neutrophils 3.6 10x3/uL (1.5-8.4); %Basophils 0.4 % (0.0-2.0); %Eosinophils 11.2 % (0.0-6.0); %Lymphocytes 12.7 % (18.0-47.0); %Monocytes 7.4 % (0.0-10.0); %Neutrophils 67.7 % (40.0-75.0); Hematocrit 29.6 % (34.9-44.5); Hemoglobin 9.9 g/dL (12.0-15.5); Mean Corpuscular HGB CONC 33.4 g/dL (32.0-36.0); Mean Corpuscular Volume 92.8 fl (81.6-98.3); Mean Platelet Volume 8.5 fl (7.4-10.4); Platelet Count 83 10x3/uL (150-450); RBC Distribution Width 18.5 % (11.5-14.5); Red Blood Cell (RBC) Count 3.19 10x6/uL (3.90-5.03); White Blood Cell (WBC) Count 5.3 10x3/uL (3.5-10.5)
[2023-09-15 04:25] LABS: Anion Gap 9 mmol/L (10-20); BUN (Urea Nitrogen) 19 mg/dL (9.8-20.1); Calc. Creatinine Clearance 74 mL/min (70-130); Calcium 8.3 mg/dL (7.8-10.44); Carbon Dioxide 16 mmol/L (23-31); Chloride 114 mmol/L (98-107); Estimated GFR 91; Glucose 85 mg/dL (80-115); Potassium 4.2 mmol/L (3.5-5.1); Sodium 135 mmol/L (136-145)
[2023-09-15 04:39] LABS: INR-International Normal Ratio 1.5; PTT 40.2 sec (22.0-33.0); Prothrombin Time 15.8 sec (9.5-12.1)
[2023-09-15] MEDS: Octreotide Acetate 100 MCG/ML VIAL SLOW IVP SCH ×2 (08:23→21:37)
[2023-09-15] MEDS: Nadolol 40 MG TAB PO SCH (08:24)
[2023-09-15] MEDS: LACTINEX 1 TAB PO SCH ×2 (08:24→21:38)
[2023-09-15] MEDS: Multivitamin W/ Minerals 1 TAB PO SCH (08:24)
[2023-09-15] MEDS: OTEZLA PO SCH ×2 (08:24→21:38)
[2023-09-15] MEDS: Zinc Sulfate 220 MG CAP PO SCH (08:24)
[2023-09-15] MEDS: Cholecalciferol 1,000 UNITS (25 MCG) TAB PO SCH (08:24)
[2023-09-15] MEDS: Thiamine 100 MG TAB PO SCH (08:24)
[2023-09-15] MEDS: Rifaximin 200 MG TAB PO SCH ×3 (08:24→21:37)
[2023-09-15] MEDS: Midodrine HCl 5 MG TAB PO SCH ×3 (08:24→21:37)
[2023-09-15] MEDS: Pantoprazole 40 MG VIAL IVP SCH ×2 (08:25→21:36)
[2023-09-15] MEDS: Lactated Ringer's 1,000 ML IV SCH (15:07)
[2023-09-15] MEDS: Ondansetron PF 4 MG/2 ML Vial IVP PRN (21:58)
[2023-09-16] MEDS: oxyCODONE 5 MG TAB PO PRN ×2 (00:22→06:22)
[2023-09-16] MEDS ORDERED: Lactated Ringer's 500 ML IV SCH (08:45)
[2023-09-16] MEDS: Lactated Ringer's 1,000 ML IV SCH (10:10)
[2023-09-16] MEDS: Midodrine HCl 5 MG TAB PO SCH (10:10)
[2023-09-16] MEDS: LACTINEX 1 TAB PO SCH (10:11)
[2023-09-16] MEDS: Cholecalciferol 1,000 UNITS (25 MCG) TAB PO SCH (10:11)
[2023-09-16] MEDS: Nadolol 40 MG TAB PO SCH (10:11)
[2023-09-16] MEDS: Multivitamin W/ Minerals 1 TAB PO SCH (10:11)
[2023-09-16] MEDS: Pantoprazole 40 MG VIAL IVP SCH (10:11)
[2023-09-16] MEDS: Zinc Sulfate 220 MG CAP PO SCH (10:11)
[2023-09-16] MEDS: Thiamine 100 MG TAB PO SCH (10:11)
[2023-09-16] MEDS: Rifaximin 200 MG TAB PO SCH (10:12)
[2023-09-16] MEDS: Octreotide Acetate 100 MCG/ML VIAL SLOW IVP SCH (10:13)
[2023-09-16] MEDS: OTEZLA PO SCH (10:14)
[2023-09-16 11:12] LABS: Hematocrit 31.1 % (34.9-44.5); Hemoglobin 10.3 g/dL (12.0-15.5)
[2023-09-16 11:24] LABS: Anion Gap 9 mmol/L (10-20); BUN (Urea Nitrogen) 7 mg/dL (9.8-20.1); Calc. Creatinine Clearance 77 mL/min (70-130); Calcium 7.7 mg/dL (7.8-10.44); Carbon Dioxide 18 mmol/L (23-31); Chloride 112 mmol/L (98-107); Estimated GFR 96; Glucose 128 mg/dL (80-115); Potassium 3.7 mmol/L (3.5-5.1); Sodium 135 mmol/L (136-145)
[2023-09-16 12:36] VITALS: BP 108/58; TEMP 97.9
== END 2023-09-16 14:05 | disposition home health service (06) | DRG 378 ==
LOC: CSHERS 12:55 → SUATTDRO 12:55 → CSHTELE 15:50
PROVIDERS: ADMIT Internal Medicine; ATTEND Internal Medicine
PROC: 30233N1 Transfusion of Nonautologous Red Blood Cells into Peripheral Vein, Percutaneous Approach (ICD-10-PCS; 2023-09-13)
PROC: 0W3P8ZZ Control Bleeding in Gastrointestinal Tract, Via Natural or Artificial Opening Endoscopic (ICD-10-PCS; principal; 2023-09-14)
PROC: 0DJ08ZZ Inspection of Upper Intestinal Tract, Via Natural or Artificial Opening Endoscopic (ICD-10-PCS; 2023-09-14)
DX: K25.4 Chronic or unspecified gastric ulcer with hemorrhage (principal); D62 Acute posthemorrhagic anemia; K76.6 Portal hypertension; I50.22 Chronic systolic (congestive) heart failure; K31.1 Adult hypertrophic pyloric stenosis; E22.2 Syndrome of inappropriate secretion of antidiuretic hormone; E78.5 Hyperlipidemia, unspecified; I11.0 Hypertensive heart disease with heart failure; K76.0 Fatty (change of) liver, not elsewhere classified; I25.10 Atherosclerotic heart disease of native coronary artery without angina pectoris; E80.6 Other disorders of bilirubin metabolism; Z85.3 Personal history of malignant neoplasm of breast; Z88.5 Allergy status to narcotic agent; Z88.0 Allergy status to penicillin; Z79.899 Other long term (current) drug therapy; Z92.21 Personal history of antineoplastic chemotherapy; Z92.3 Personal history of irradiation; Z95.818 Presence of other cardiac implants and grafts; Z98.890 Other specified postprocedural states; Z90.89 Acquired absence of other organs
CPT/HCPCS: 36415; 36416; 36430; 71045; 80048; 80053; 84484; 85014; 85018; 85025; 85610; 85730; 86850; 86900; 86901; 86922; 87338; 93005; 96365; 96375; C9113; J2354; J2405; J2704; J7050; J7120; J7999; P9016

== ENCOUNTER 2023-09-24 19:47 | Inpatient (IN) | payer MEDICARE ==
[~2023-09-24 19:47] MED LIST: Iopamidol 300 61% 100 ML VIAL FS ONE
[2023-09-24] MEDS ORDERED: Morphine 4 MG/ML VIAL ONE (20:53)
[2023-09-24 20:57] LABS: #Eosinphils 0.1 10x3/uL (0.0-0.5); #Monocytes 0.5 10x3/uL (0.0-1.1); #Neutrophils 4.3 10x3/uL (1.5-8.4); %Basophils 0.7 % (0.0-2.0); %Eosinophils 2.3 % (0.0-6.0); %Lymphocytes 10.8 % (18.0-47.0); %Monocytes 9.3 % (0.0-10.0); %Neutrophils 76.4 % (40.0-75.0); Hemoglobin 10.9 g/dL (12.0-15.5); Mean Corpuscular HGB CONC 34.1 g/dL (32.0-36.0); Mean Corpuscular Hemoglobin 32.3 pg (27.0-33.0); Platelet Count 131 10x3/uL (150-450); RBC Distribution Width 18.5 % (11.5-14.5); Red Blood Cell (RBC) Count 3.37 10x6/uL (3.90-5.03); White Blood Cell (WBC) Count 5.6 10x3/uL (3.5-10.5)
[2023-09-24 21:06] LABS: INR-International Normal Ratio 1.3; Prothrombin Time 13.5 sec (9.5-12.1)
[2023-09-24 21:10] LABS: ALT (SGPT) 34 U/L (8-55); AST (SGOT) 46 U/L (5-34); Albumin 2.6 g/dL (3.4-4.8); Alkaline Phosphatase 135 U/L (40-110); Anion Gap 15 mmol/L (10-20); BUN (Urea Nitrogen) 14 mg/dL (9.8-20.1); Bilirubin, Total 2.5 mg/dL (0.2-1.2); Calc. Creatinine Clearance 0 mL/min (70-130); Calcium 9.1 mg/dL (7.8-10.44); Carbon Dioxide 23 mmol/L (23-31); Chloride 99 mmol/L (98-107); Estimated GFR 40; Globulin 2.7 g/dL (2.4-3.5); Glucose 114 mg/dL (80-115); Potassium 4.5 mmol/L (3.5-5.1); Protein, Total 5.3 g/dL (5.8-8.1); Sodium 132 mmol/L (136-145)
[2023-09-24] MEDS ORDERED: Promethazine HCl 25 MG in Sodium Chloride 0.9% 50 ML IVPB SCH (21:15)
[2023-09-24 22:56] LABS: Bilirubin Neg (Negative); Blood, Urine Negative (Negative); Clarity Clear (Clear); Glucose, Urine (Dipstick) Normal (Negative); Ketone, Urine Negative (Negative); Leukocyte 25 (Negative); Nitrite Negative (Negative); Protein, Urine (Dipstick) Negative (Neg-Trace); Specific Gravity, Urine 1.005 (1.005-1.030); Urobilinogen Normal mg/dL (Less than 2)
[2023-09-24 23:15] LABS: CAUTI Indications for Culture Pelvic or flank pain; RBC/HPF 0-3 HPF (0-3)
[2023-09-24 23:16] LABS: Bacteria/HPF 3+ HPF (None Seen); Transitional Epithelial 0-3 HPF (None Seen)
[2023-09-24 23:19] LABS: Urine Culture Reflex No No
[2023-09-24] MEDS ORDERED: Morphine 4 MG/ML VIAL SLOW IVP PRN (23:57)
[2023-09-25] MEDS ORDERED: Pantoprazole 40 MG VIAL IVP SCH (01:30)
[2023-09-25 01:41] VITALS: BMI 22.6
[2023-09-25] MEDS: Sodium Chloride 0.9% 1,000 ML IV SCH ×3 (02:06→21:40)
[2023-09-25 05:20] LABS: ALT (SGPT) 27 U/L (8-55); AST (SGOT) 35 U/L (5-34); Albumin 2.2 g/dL (3.4-4.8); Alkaline Phosphatase 107 U/L (40-110); Anion Gap 12 mmol/L (10-20); BUN (Urea Nitrogen) 14 mg/dL (9.8-20.1); Bilirubin, Total 2.3 mg/dL (0.2-1.2); Calc. Creatinine Clearance 43 mL/min (70-130); Calcium 8.1 mg/dL (7.8-10.44); Carbon Dioxide 22 mmol/L (23-31); Chloride 102 mmol/L (98-107); Estimated GFR 48; Globulin 2.1 g/dL (2.4-3.5); Glucose 114 mg/dL (80-115); Potassium 4.5 mmol/L (3.5-5.1); Protein, Total 4.3 g/dL (5.8-8.1); Sodium 131 mmol/L (136-145)
[2023-09-25] MEDS ORDERED: Promethazine HCl 12.5 MG in Sodium Chloride 0.9% 50 ML IVPB PRN (06:00)
[2023-09-25] MEDS: Pantoprazole 40 MG VIAL IVP SCH ×2 (08:27→21:16)
[2023-09-25] MEDS: Morphine 2 MG/ML VIAL SLOW IVP PRN ×2 (09:09→15:29)
[2023-09-25] MEDS: metroNIDAZOLE 500 MG TAB PO SCH ×2 (15:05→21:16)
[2023-09-25] MEDS: Clarithromycin 250 MG TAB PO SCH (21:15)
[2023-09-25] MEDS ORDERED: Metoprolol Tartrate 25 MG TAB PO SCH (23:30)
[2023-09-26] MEDS: Morphine 2 MG/ML VIAL SLOW IVP PRN (01:16)
[2023-09-26 07:47] VITALS: TEMP 98.6
[2023-09-26] MEDS: Clarithromycin 250 MG TAB PO SCH (07:49)
[2023-09-26] MEDS: metroNIDAZOLE 500 MG TAB PO SCH (07:49)
[2023-09-26] MEDS: Pantoprazole 40 MG VIAL IVP SCH (07:51)
[2023-09-26] MEDS: Sodium Chloride 0.9% 1,000 ML IV SCH (08:11)
[2023-09-26 08:54] VITALS: BP 109/58
[2023-09-26] MEDS ORDERED: Metoprolol Tartrate 25 MG TAB PO SCH (09:00)
== END 2023-09-26 13:03 | disposition home or self-care (01) | DRG 384 ==
LOC: CSHERS 19:47 → CSHTELE 23:49
PROVIDERS: ADMIT Family Medicine; ATTEND Internal Medicine
DX: K27.9 Peptic ulcer, site unspecified, unspecified as acute or chronic, without hemorrhage or perforation (principal); K76.6 Portal hypertension; N17.9 Acute kidney failure, unspecified; K55.20 Angiodysplasia of colon without hemorrhage; K74.60 Unspecified cirrhosis of liver; E86.0 Dehydration; Z88.5 Allergy status to narcotic agent; Z88.0 Allergy status to penicillin; E78.00 Pure hypercholesterolemia, unspecified; I25.2 Old myocardial infarction; Z98.890 Other specified postprocedural states; Z90.89 Acquired absence of other organs; I25.10 Atherosclerotic heart disease of native coronary artery without angina pectoris; Z95.5 Presence of coronary angioplasty implant and graft; Z82.49 Family history of ischemic heart disease and other diseases of the circulatory system; Z85.3 Personal history of malignant neoplasm of breast; L40.9 Psoriasis, unspecified; I50.9 Heart failure, unspecified; I11.0 Hypertensive heart disease with heart failure; K80.20 Calculus of gallbladder without cholecystitis without obstruction
CPT/HCPCS: 74177; 76705; 80053; 81001; 83690; 83735; 85025; 85610; 85730; 93005; C9113; J1642; J1650; J2270; J2272; J2550; J7050; Q9967

== ENCOUNTER 2023-10-06 09:55 | Emergency (ER) | payer MEDICARE ==
[2023-10-06] MEDS ORDERED: Ondansetron PF 4 MG/2 ML Vial ONE ×2 (11:14→12:26)
[2023-10-06] MEDS ORDERED: Pantoprazole 40 MG VIAL ONE (11:14)
[2023-10-06] MEDS ORDERED: Morphine 4 MG/ML VIAL ONE ×2 (11:14→12:26)
[2023-10-06 11:22] LABS: #Eosinphils 0.1 10x3/uL (0.0-0.5); #Monocytes 0.4 10x3/uL (0.0-1.1); #Neutrophils 3.8 10x3/uL (1.5-8.4); %Basophils 0.4 % (0.0-2.0); %Eosinophils 1.9 % (0.0-6.0); %Lymphocytes 11.2 % (18.0-47.0); %Monocytes 8.1 % (0.0-10.0); %Neutrophils 78.2 % (40.0-75.0); Hematocrit 33.4 % (34.9-44.5); Hemoglobin 11.5 g/dL (12.0-15.5); Mean Corpuscular HGB CONC 34.4 g/dL (32.0-36.0); Mean Corpuscular Hemoglobin 31.9 pg (27.0-33.0); Mean Corpuscular Volume 92.8 fl (81.6-98.3); Mean Platelet Volume 8.4 fl (7.4-10.4); Platelet Count 124 10x3/uL (150-450); RBC Distribution Width 17.9 % (11.5-14.5); White Blood Cell (WBC) Count 4.8 10x3/uL (3.5-10.5)
[2023-10-06 11:49] LABS: ALT (SGPT) 17 U/L (8-55); AST (SGOT) 31 U/L (5-34); Albumin 2.6 g/dL (3.4-4.8); Alkaline Phosphatase 127 U/L (40-110); Anion Gap 17 mmol/L (10-20); BUN (Urea Nitrogen) 11 mg/dL (9.8-20.1); Bilirubin, Total 2.4 mg/dL (0.2-1.2); Calc. Creatinine Clearance 0 mL/min (70-130); Calcium 8.9 mg/dL (7.8-10.44); Carbon Dioxide 15 mmol/L (23-31); Chloride 103 mmol/L (98-107); Estimated GFR 71; Globulin 2.9 g/dL (2.4-3.5); Glucose 88 mg/dL (80-115); Lipase 36 U/L (8-78); Potassium 4.4 mmol/L (3.5-5.1); Protein, Total 5.5 g/dL (5.8-8.1); Sodium 131 mmol/L (136-145)
== END 2023-10-06 14:26 | disposition home or self-care (01) ==
LOC: CSHERS 09:55
DX: R10.9 Unspecified abdominal pain (principal); R11.2 Nausea with vomiting, unspecified; Z87.891 Personal history of nicotine dependence
CPT/HCPCS: 71045; 74177; 80053; 83690; 85025; 96361; 96374; 96375; 96376; C9113; J1642; J2270; J2405; Q9967

== ENCOUNTER 2023-10-08 16:26 | Emergency (ER) | payer MEDICARE ==
[2023-10-08 17:35] LABS: #Eosinphils 0.3 10x3/uL (0.0-0.5); #Monocytes 0.8 10x3/uL (0.0-1.1); #Neutrophils 3.7 10x3/uL (1.5-8.4); %Basophils 0.7 % (0.0-2.0); %Eosinophils 5.1 % (0.0-6.0); %Lymphocytes 15.4 % (18.0-47.0); %Monocytes 13.3 % (0.0-10.0); %Neutrophils 65.1 % (40.0-75.0); Hematocrit 34.8 % (34.9-44.5); Mean Corpuscular HGB CONC 34.5 g/dL (32.0-36.0); Mean Corpuscular Hemoglobin 32.2 pg (27.0-33.0); Mean Corpuscular Volume 93.3 fl (81.6-98.3); Mean Platelet Volume 9.1 fl (7.4-10.4); Platelet Count 142 10x3/uL (150-450); RBC Distribution Width 17.6 % (11.5-14.5); Red Blood Cell (RBC) Count 3.73 10x6/uL (3.90-5.03); White Blood Cell (WBC) Count 5.7 10x3/uL (3.5-10.5)
[2023-10-08 17:53] LABS: ALT (SGPT) 22 U/L (8-55); AST (SGOT) 45 U/L (5-34); Albumin 2.7 g/dL (3.4-4.8); Alkaline Phosphatase 131 U/L (40-110); Anion Gap 14 mmol/L (10-20); BUN (Urea Nitrogen) 10 mg/dL (9.8-20.1); Bilirubin, Total 2.1 mg/dL (0.2-1.2); Calc. Creatinine Clearance 0 mL/min (70-130); Calcium 9.6 mg/dL (7.8-10.44); Carbon Dioxide 19 mmol/L (23-31); Chloride 101 mmol/L (98-107); Estimated GFR 56; Globulin 3.1 g/dL (2.4-3.5); Glucose 109 mg/dL (80-115); Lipase 55 U/L (8-78); Potassium 4.1 mmol/L (3.5-5.1); Protein, Total 5.8 g/dL (5.8-8.1); Sodium 130 mmol/L (136-145)
[2023-10-08] MEDS ORDERED: Ketorolac Tromethamine 30 MG/ML VIAL ONE (17:53)
[2023-10-08] MEDS ORDERED: Ondansetron PF 4 MG/2 ML Vial ONE ×2 (17:53→21:03)
[2023-10-08 20:07] LABS: Bilirubin Neg (Negative); Blood, Urine Negative (Negative); Clarity Slightly Cloudy (Clear); Glucose, Urine (Dipstick) Normal (Negative); Ketone, Urine Negative (Negative); Leukocyte 500 (Negative); Nitrite Negative (Negative); Protein, Urine (Dipstick) Negative (Neg-Trace); Specific Gravity, Urine 1.005 (1.005-1.030); Urobilinogen Normal mg/dL (Less than 2)
[2023-10-08 20:31] LABS: Bacteria/HPF 3+ HPF (None Seen); CAUTI Indications for Culture Pelvic or flank pain; RBC/HPF 0-3 HPF (0-3); Transitional Epithelial 0-3 HPF (None Seen); WBC/HPF 21-50 HPF (0-3)
[2023-10-08 20:32] LABS: Mucous/LPF 1+ LPF (<2+)
[2023-10-08 20:34] LABS: Urine Culture Reflex Yes Yes
[2023-10-08 20:45] LABS: SARS-CoV-2 NAA Rapid Test Not Detected (NotDetected)
== END 2023-10-08 20:51 | disposition home or self-care (01) ==
LOC: CSHERS 16:26
DX: R10.84 Generalized abdominal pain (principal); R11.2 Nausea with vomiting, unspecified; I25.2 Old myocardial infarction; I25.10 Atherosclerotic heart disease of native coronary artery without angina pectoris; Z87.891 Personal history of nicotine dependence; Z85.3 Personal history of malignant neoplasm of breast
CPT/HCPCS: 0240U; 74177; 76705; 80053; 81001; 83690; 85025; 87077; 87086; 93005; 87186; 96361; 96374; 96375; 96376; J1885; J2405; Q9967

== ENCOUNTER 2023-10-16 11:25 | Emergency (ER) | payer MEDICARE ==
[2023-10-16 12:15] LABS: #Eosinphils 0.2 10x3/uL (0.0-0.5); #Monocytes 0.6 10x3/uL (0.0-1.1); #Neutrophils 3.3 10x3/uL (1.5-8.4); %Basophils 0.6 % (0.0-2.0); %Eosinophils 4.8 % (0.0-6.0); %Lymphocytes 15.4 % (18.0-47.0); %Monocytes 11.7 % (0.0-10.0); %Neutrophils 66.9 % (40.0-75.0); Hematocrit 32.2 % (34.9-44.5); Mean Corpuscular HGB CONC 34.2 g/dL (32.0-36.0); Mean Corpuscular Hemoglobin 31.6 pg (27.0-33.0); Mean Corpuscular Volume 92.5 fl (81.6-98.3); Mean Platelet Volume 9.6 fl (7.4-10.4); Platelet Count 100 10x3/uL (150-450); RBC Distribution Width 17.2 % (11.5-14.5); Red Blood Cell (RBC) Count 3.48 10x6/uL (3.90-5.03)
[2023-10-16 12:22] LABS: ALT (SGPT) 23 U/L (8-55); AST (SGOT) 41 U/L (5-34); Albumin 2.4 g/dL (3.4-4.8); Alkaline Phosphatase 119 U/L (40-110); Anion Gap 14 mmol/L (10-20); BUN (Urea Nitrogen) 21 mg/dL (9.8-20.1); Calc. Creatinine Clearance 0 mL/min (70-130); Calcium 8.2 mg/dL (7.8-10.44); Carbon Dioxide 14 mmol/L (23-31); Chloride 107 mmol/L (98-107); Estimated GFR 49; Globulin 2.8 g/dL (2.4-3.5); Glucose 116 mg/dL (80-115); Protein, Total 5.2 g/dL (5.8-8.1); Sodium 131 mmol/L (136-145)
[2023-10-16 12:26] LABS: Troponin I Less than 0.010 ng/mL (< 0.028)
[2023-10-16] MEDS ORDERED: Ondansetron PF 4 MG/2 ML Vial ONE (13:51)
[2023-10-16] MEDS ORDERED: Ketorolac Tromethamine 30 MG/ML VIAL ONE (13:51)
[2023-10-16 14:15] LABS: Bilirubin Neg (Negative); Blood, Urine Negative (Negative); Clarity Clear (Clear); Glucose, Urine (Dipstick) Normal (Negative); Ketone, Urine Negative (Negative); Leukocyte Negative (Negative); Nitrite Negative (Negative); Protein, Urine (Dipstick) 15 mg/dl (Neg-Trace); Urobilinogen Normal mg/dL (Less than 2)
[2023-10-16 14:28] LABS: Bacteria/HPF None Seen HPF (None Seen); CAUTI Indications for Culture Alt mental st,lethar; RBC/HPF 0-3 HPF (0-3); Squamous Epithelial 0-3 HPF (0-3); WBC/HPF 0-3 HPF (0-3)
[2023-10-16 14:29] LABS: Urine Culture Reflex No No
[2023-10-16 14:52] LABS: SARS-CoV-2 NAA Rapid Test Not Detected (NotDetected)
== END 2023-10-16 15:52 | disposition home or self-care (01) ==
LOC: CSHERS 11:25
DX: B34.9 Viral infection, unspecified (principal); K29.70 Gastritis, unspecified, without bleeding; E78.00 Pure hypercholesterolemia, unspecified; K21.9 Gastro-esophageal reflux disease without esophagitis; Z87.891 Personal history of nicotine dependence
CPT/HCPCS: 0240U; 71045; 80053; 81001; 84484; 85025; 93005; 96374; 96375; J1885; J2405

== ENCOUNTER 2024-01-13 16:14 | Observation (INO) | payer MEDICARE ==
[2024-01-13 16:35] VITALS: BMI 25.2
[2024-01-13] MEDS ORDERED: Promethazine HCl 25 MG in Sodium Chloride 0.9% 50 ML IVPB PRN (19:10)
[2024-01-13] MEDS ORDERED: Electrolyte Replacement Protocol 1 EACH FS SCH (19:15)
[2024-01-13] MEDS ORDERED: Magnesium 2 GM/50 ML(in water) 2 GM in Premix 1 BAG IVPB SCH (20:00)
[2024-01-13] MEDS: Potassium Chloride 20 MEQ in Premix 1 BAG IVPB SCH ×2 (20:51→23:05)
[2024-01-13] MEDS: Pantoprazole 40 MG VIAL IVP SCH (20:57)
[2024-01-13] MEDS: Sodium Chloride 0.9% 1,000 ML IV SCH (20:57)
[2024-01-13] MEDS: Ciprofloxacin Lactate/D5W 400 MG in Premix 1 BAG IVPB SCH (21:03)
[2024-01-13] MEDS: Morphine 2 MG/ML VIAL SLOW IVP PRN (21:10)
[2024-01-13 21:20] LABS: Magnesium 1.7 mg/dL (1.6-2.6)
[2024-01-13] MEDS ORDERED: Potassium Phosphate 15 MMOL in Sodium Chloride 0.9% 100 ML IVPB SCH (22:00)
[2024-01-13] MEDS: metroNIDAZOLE 500 MG in Premix 1 BAG IVPB SCH (23:02)
[2024-01-14 04:07] LABS: ALT (SGPT) 22 U/L (8-55); AST (SGOT) 37 U/L (5-34); Albumin 2.2 g/dL (3.4-4.8); Alkaline Phosphatase 113 U/L (40-110); Anion Gap 7 mmol/L (10-20); BUN (Urea Nitrogen) 8 mg/dL (9.8-20.1); Bilirubin, Total 2.1 mg/dL (0.2-1.2); Calc. Creatinine Clearance 81 mL/min (70-130); Carbon Dioxide 18 mmol/L (23-31); Chloride 116 mmol/L (98-107); Estimated GFR 91; Globulin 2.3 g/dL (2.4-3.5); Glucose 59 mg/dL (80-115); Potassium 4.3 mmol/L (3.5-5.1); Protein, Total 4.5 g/dL (5.8-8.1); Sodium 137 mmol/L (136-145)
[2024-01-14 04:11] LABS: #Basophils 0.02 10x3/uL (0.0-0.2); #Monocytes 0.41 10x3/uL (0.0-1.1); #Neutrophils 2.57 10x3/uL (1.5-8.4); %Basophils 0.5 % (0.0-2.0); %Lymphocytes 14.5 % (18.0-47.0); %Monocytes 10.3 % (0.0-10.0); %Neutrophils 64.4 % (40.0-75.0); Hematocrit 26.5 % (34.9-44.5); Hemoglobin 9.3 g/dL (12.0-15.5); Mean Corpuscular HGB CONC 35.1 g/dL (32.0-36.0); Mean Corpuscular Hemoglobin 35.6 pg (27.0-33.0); Mean Corpuscular Volume 101.5 fl (81.6-98.3); Platelet Count 98 10x3/uL (150-450); RBC Distribution Width 15.7 % (11.5-14.5); Red Blood Cell (RBC) Count 2.61 10x6/uL (3.90-5.03)
[2024-01-14 04:53] LABS: Platelet Adequacy Comment Appears Decreased
[2024-01-14 04:54] LABS: Ovalocytes SLIGHT = 2-5 cells (100X) (0-1/hpf)
[2024-01-14] MEDS: Magnesium 2 GM/50 ML(in water) 2 GM in Premix 1 BAG IVPB SCH (09:37)
[2024-01-14] MEDS: Pantoprazole 40 MG VIAL IVP SCH (09:37)
[2024-01-14] MEDS: Ciprofloxacin Lactate/D5W 200 MG in Premix 1 BAG IVPB SCH ×2 (09:38→11:00)
[2024-01-14] MEDS: Sodium Chloride 0.9% 1,000 ML IV SCH (14:19)
[2024-01-15 06:18] LABS: #Basophils 0.02 10x3/uL (0.0-0.2); #Eosinphils 0.41 10x3/uL (0.0-0.5); #Monocytes 0.44 10x3/uL (0.0-1.1); %Basophils 0.5 % (0.0-2.0); %Eosinophils 11.2 % (0.0-6.0); %Lymphocytes 15.6 % (18.0-47.0); %Monocytes 12.1 % (0.0-10.0); %Neutrophils 60.3 % (40.0-75.0); Hematocrit 27.4 % (34.9-44.5); Hemoglobin 9.4 g/dL (12.0-15.5); Mean Corpuscular HGB CONC 34.3 g/dL (32.0-36.0); Mean Corpuscular Hemoglobin 34.9 pg (27.0-33.0); Mean Corpuscular Volume 101.9 fl (81.6-98.3); Mean Platelet Volume 9.2 fl (7.4-10.4); Platelet Count 98 10x3/uL (150-450); RBC Distribution Width 15.6 % (11.5-14.5); Red Blood Cell (RBC) Count 2.69 10x6/uL (3.90-5.03); White Blood Cell (WBC) Count 3.7 10x3/uL (3.5-10.5)
[2024-01-15 06:23] LABS: ALT (SGPT) 26 U/L (8-55); AST (SGOT) 45 U/L (5-34); Alkaline Phosphatase 128 U/L (40-110); Anion Gap 7 mmol/L (10-20); BUN (Urea Nitrogen) 4 mg/dL (9.8-20.1); Bilirubin, Total 1.6 mg/dL (0.2-1.2); Calc. Creatinine Clearance 84 mL/min (70-130); Calcium 8.5 mg/dL (7.8-10.44); Carbon Dioxide 18 mmol/L (23-31); Chloride 112 mmol/L (98-107); Estimated GFR 96; Globulin 2.3 g/dL (2.4-3.5); Glucose 91 mg/dL (80-115); Magnesium 1.8 mg/dL (1.6-2.6); Phosphorus 2.1 mg/dL (2.3-4.7); Potassium 3.4 mmol/L (3.5-5.1); Protein, Total 4.3 g/dL (5.8-8.1); Sodium 134 mmol/L (136-145)
[2024-01-15] MEDS: Potassium Chloride 20 MEQ TAB PO SCH (08:20)
[2024-01-15] MEDS: Magnesium 2 GM/50 ML(in water) 2 GM in Premix 1 BAG IVPB SCH (08:21)
[2024-01-15] MEDS ORDERED: Magnesium Oxide 400 MG TAB PO SCH (09:26)
[2024-01-15] MEDS ORDERED: Sodium Phosphate 15 MMOL in Sodium Chloride 0.9% 250 ML 250 ML IVPB SCH (09:30)
[2024-01-15 12:14] VITALS: BP 132/70; TEMP 98.5
[2024-01-15] MEDS: PHOS-NAK 1 PKT PACK PO SCH (13:33)
[2024-01-16] MEDS ORDERED: Magnesium Oxide 400 MG TAB PO SCH (09:00)
== END 2024-01-15 13:30 | disposition home or self-care (01) ==
LOC: INTOOBSV 16:14 → CSHTELE 16:14
PROVIDERS: ADMIT Emergency Medicine; ATTEND Internal Medicine
DX: K74.60 Unspecified cirrhosis of liver (principal); R11.2 Nausea with vomiting, unspecified; I10 Essential (primary) hypertension; E78.5 Hyperlipidemia, unspecified; I25.2 Old myocardial infarction; K21.9 Gastro-esophageal reflux disease without esophagitis; I25.10 Atherosclerotic heart disease of native coronary artery without angina pectoris; K76.6 Portal hypertension; Z87.891 Personal history of nicotine dependence; Z98.890 Other specified postprocedural states; Z90.89 Acquired absence of other organs; Z88.5 Allergy status to narcotic agent; Z88.0 Allergy status to penicillin; Z79.899 Other long term (current) drug therapy; Z95.5 Presence of coronary angioplasty implant and graft
CPT/HCPCS: 36416; 80053; 83735; 84100; 85025; 94760; C9113; J0744; J1642; J2272; J3475; J3480; J7050

== ENCOUNTER 2024-03-12 12:02 | Outpatient (CLI) | payer MEDICARE | END 2024-03-12 12:03 | disposition home or self-care (01) | LOC: CSHMAMMO 12:02 | PROVIDERS: ATTEND Nurse Practitioner | DX: Z12.31 Encounter for screening mammogram for malignant neoplasm of breast (principal); M80.00XA Age-related osteoporosis with current pathological fracture, unspecified site, initial encounter for fracture; M85.851 Other specified disorders of bone density and structure, right thigh; M85.852 Other specified disorders of bone density and structure, left thigh; Z85.3 Personal history of malignant neoplasm of breast; Z98.890 Other specified postprocedural states | CPT/HCPCS: 77063; 77067; 77080 ==

== ENCOUNTER 2024-05-07 15:14 | Emergency (ER) | payer MEDICARE, SELFPAY ==
[2024-05-07 16:11] LABS: Bilirubin Neg (Negative); Blood, Urine Negative (Negative); Clarity Slightly Cloudy (Clear); Glucose, Urine (Dipstick) Normal (Negative); Ketone, Urine Negative (Negative); Leukocyte 500 (Negative); Nitrite Positive (Negative); Protein, Urine (Dipstick) 15 mg/dl (Neg-Trace); Specific Gravity, Urine 1.015 (1.005-1.030); Urobilinogen Normal mg/dL (Less than 2)
[2024-05-07 16:25] LABS: Bacteria/HPF 4+ HPF (None Seen); CAUTI Indications for Culture Pelvic or flank pain; RBC/HPF None Seen HPF (0-3); WBC/HPF 21-50 HPF (0-3)
[2024-05-07 16:27] LABS: Urine Culture Reflex Yes Yes
== END 2024-05-07 18:26 | disposition home or self-care (01) ==
LOC: CSHERS 15:14
DX: S32.019A Unspecified fracture of first lumbar vertebra, initial encounter for closed fracture (principal); S22.081A Stable burst fracture of T11-T12 vertebra, initial encounter for closed fracture; N39.0 Urinary tract infection, site not specified; I25.2 Old myocardial infarction; K21.9 Gastro-esophageal reflux disease without esophagitis; Z55.6 Problems related to health literacy; Z87.891 Personal history of nicotine dependence; W18.30XA Fall on same level, unspecified, initial encounter
CPT/HCPCS: 72128; 72131; 80053; 81001; 87077; 87086; 87186; 96374; 96375; 96376; 99284; J1642; J2272